=== PATIENT | male | born 1940 | race Caucasian/White ===

== ENCOUNTER 2022-07-11 10:00 | Outpatient (REF) | payer MEDICARE, OTHER, SELFPAY ==
[2022-07-11 14:59] LABS: Influenza A PCR NEGATIVE (Negative); Influenza B PCR NEGATIVE (Negative); Resp Syncy Virus RNA Qual PCR NEGATIVE (Negative); SARS COV2 PCR INHOUSE NEGATIVE (Negative)
== END 2022-07-11 10:01 | disposition home or self-care (01) ==
LOC: HO.LAB 10:00
PROVIDERS: Visit Provider Family Medicine
DX: Z20.822 Contact with and (suspected) exposure to COVID-19 (principal); B34.9 Viral infection, unspecified
CPT/HCPCS: 0241U

== ENCOUNTER 2024-01-01 14:21 | Outpatient (AMB) | payer MEDICARE, OTHER, SELFPAY ==
--- NOTE | 2024-01-01 14:23 | MHC.PC.OV ---
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: No Allergies simvastatin [Zocor] Allergy (Unknown, Verified 07/11/22 09:47) Hives Medication List - Last Reconciled 01/01/24 by Gisella Alexis PA-C citalopram 20 mg PO DAILY losartan 50 mg PO DAILY meclizine 25 mg PO TID rosuvastatin 10 mg PO DAILY trazodone 50 mg PO BEDTIME zolpidem 10 mg PO BEDTIME Tobacco use date assessed: 01/01/24 Fall risk assessment: 2 + Falls in past year Last assessed Fall Risk: 01/01/24 Dental Screening Dental Screen Date: 01/01/24 Did you have a dental visit in the last 12 months?: No Did you have a dental problem in the last 6 months where you did not have access to dental care?: No Was dental information given to patient?: Patient has dentist 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 He is transferring from [facility]. He was previously Dr. Diggs's patient. He has a significant past medical history of anxiety, depression, insomnia, hypertension, hyperlipidemia, CAD, CVA, prediabetes, MARNIE on CPAP. -He tells me today he did not take his meds today. Derm: Left lower leg rash that started about a year. It is intermittently itchy. Endo: has a hx of prediabetes. No polyuria or polydipsia. CV: Blood pressure today in the office is 148/72. He is currently on losartan 50 mg. Cholesterol controlled with Crestor 10 mg. Overdue for labs. Has a history of an [place] s/p PCI. Follows with cardiology. Psych: On citalopram 20 mg and zolpidem 10 mg[address] He [address] that Dr[address] Urieb switched him to trazodone and he states it was horrible. Ambien is the most effective and he wants to stay on this. He was on this for 15 years. PSA: overdue Colonoscopy: scheduled in February [facility] Medical History (Updated 01/01/24 @ 15:35 by Gisella Alexis PA-C) Neck injury Vertigo Reactive airway disease Prediabetes Polyneuropathy Periodic limb movement disorder Osteoarthritis of left knee Osteoarthritis of hip MARNIE on CPAP Myocardial infarction Major depressive disorder in partial remission Insomnia Hypoxia Hyperlipidemia Hearing aid worn Dyspnea and respiratory abnormalities Diverticulitis of sigmoid colon Coronary atherosclerosis Coronary arteriosclerosis Chronic rhinitis Chronic low back pain Benign essential HTN Arthritis Adjustment disorder with mixed anxiety and depressed mood Surgical History (Updated 01/01/24 @ 14:54 by Candy Marie CMA) H/O heart artery stent H/O colonoscopy H/O hernia repair Hx laparoscopic cholecystectomy Family History (Updated 01/01/24 @ 14:57 by Candy Marie CMA) Mother Alzheimer dementia Social History Housing: House Patient Tobacco Use Status: Never used Tobacco e-Cigarette/Vaping Use: Never Used Second Hand Smoke Exposure: No service: No Current occupational status: retired Cognitive needs: No Hearing needs: No Vision needs: No Questionnaire PHQ-9 Over the last 2 weeks, how often have you been bothered by any of the following problems? 1. Little interest or pleasure in doing things: not at all 2. Feeling down, depressed, or hopeless: not at all 3. Trouble falling or staying asleep, or sleeping too much: not at all 4. Feeling tired or having little energy: not at all 5. Poor appetite or overeating: not at all 6. Feeling bad about yourself - or that you are a failure or have let yourself or your family down: not at all 7. Trouble concentrating on things, such as reading the newspaper or watching television: not at all 8. Moving or speaking so slowly that other people could have noticed. Or the opposite - being so fidgety or restless that you have been moving around a lot more than usual: not at all 9. Thoughts that you would be better off or of hurting yourself in some way: not at all Total score: 0 Depression Screening Interpretation: Negative Depression Screening Done: Yes 04273 - PHQ-9 Billing: Yes Source: Developed by Drs. Deni Jones, Marcela Syed, Stanley Stock and colleagues, with an educational ca from [employer]. Thrive Questionnaire Date Thrive assessed: 01/01/24 I am a: Patient What is your living situation today?: I have a steady place to live Within the past 12 months, did the food you bought not last and you didn't have the money to get more?: Never true Within the past 12 months, did you worry whether your food would run out before you got money to buy more?: Never true Do you have trouble paying for medicines?: No Do you have trouble getting transportation to medical appointments?: No Do you have trouble paying your heating and electricity bill?: No Do you have trouble taking care of your child, family member or friend?: No Do you have trouble with day-to-day activities such as bathing, preparing meals, shopping, managing finances, etc.?: No Are you currently unemployed and looking for a job?: No Are you interested in more education?: No Please select the resources that you would like help with: None Currently or been in a relationship where the following occur: No concerns reported THRIVE Score: 0 AUDIT C Alcohol Use Questionnaire (AUDIT-C) 1. How often do you have a drink containing alcohol?: Never 3. How often do you have six or more drinks on one occasion?: Never Total Score: 0 KJ-7 AMB Questionnaire KJ-7 Date KJ - 7 assessed: 01/01/24 Feeling nervous, anxious, or on edge: 0 = Not at all Not being able to stop or control worryin = Not at all Worrying too much about different things: 0 = Not at all Trouble relaxin = Not at all Being so restless that it is hard to sit still: 0 = Not at all Becoming easily annoyed or irritable: 0 = Not at all Feeling afraid as if something awful might happen: 0 = Not at all Total KJ-7 score (0-4 normal; 5-9 mild; 10-14 moderate; 15-21 severe): 0 Source: Developed by Drs. Deni Jones, Marcela Syed, Stanley Stock and colleagues, with an educational ca from [employer]. KJ-7 Assessment Billing KJ-7 Assessment Tool: KJ-7 Assessment 38328 Physical exam (Primary Care) Vital Signs: Last Vital Signs Temp 98.4 F 01/01/24 14:36 Pulse 64 01/01/24 14:36 Resp 18 01/01/24 14:36 BP 150/76 H 01/01/24 14:36 Pulse Ox 94 01/01/24 14:36 Oxygen Delivery Method Room Air 01/01/24 14:36 BMI result Body Mass Index 35.3 Depression Screening Interpretation: Negative Currently or been in a relationship where the following occur: No concerns reported Const Orientation/consciousness: patient oriented x3 HENMT Ears: hearing grossly normal bilaterally Neck Thyroid: Thyroid normal Lymphatic: no lymphadenopathy noted Resp Auscultation: clear to auscultation bilaterally Cardio Rate: regular rate Rhythm: regular rhythm Heart sounds: S1 normal heart sound present and S2 normal heart sound present GI Inspection: Yes normal to inspection Palpation (GI): Soft to palpation and Other GI palpation findings present (nontender, no cva tenderness) Auscultation: normoactive bowel sounds Rectal Exam - Male: Yes deferred Skin Other: There is a slightly erythematous, blanching, papular and dry rash noted on the posterior left leg. Neuro General: patient oriented x3, gait normal and no focal motor deficits Assessment and Plan Assessment & Plan (1) Hyperlipidemia: Code(s): E78.5 - Hyperlipidemia, unspecified Plan: Refilled medication today. Continue Crestor. We will check lipids and LFTs (2) Insomnia: Code(s): G47.00 - Insomnia, unspecified Plan: We will sign CSC with PCP at next appointment. I did review her last note from July 2023. (3) Major depressive disorder in partial remission: Code(s): F32.4 - Major depressive disorder, single episode, in partial remission Plan: Continue Celexa (4) Prediabetes: Code(s): R73.03 - Prediabetes Plan: A1c ordered (5) Acute dermatitis: Code(s): L30.9 - Dermatitis, unspecified Plan: We will treat with clobetasol cream. Discussed risks and benefits and adverse effects. (6) Benign essential HTN: Code(s): I10 - Essential (primary) hypertension Plan: Advised to take his medication as directed and to follow up in 1 month to be rechecked. Orders: Orders Lipid Panel Today E78.5 - Hyperlipidemia, unspecified, F32.4 - Major depressive disorder, single episode, in partial remission, G47.00 - Insomnia, unspecified, R73.03 - Prediabetes TSH reflex Free T4 Today E78.5 - Hyperlipidemia, unspecified, F32.4 - Major depressive disorder, single episode, in partial remission, G47.00 - Insomnia, unspecified, R73.03 - Prediabetes UA CC w/rflx Micro + Cult Today E78.5 - Hyperlipidemia, unspecified, F32.4 - Major depressive disorder, single episode, in partial remission, G47.00 - Insomnia, unspecified, R73.03 - Prediabetes Comprehensive [place]. Panel Fast Today E78.5 - Hyperlipidemia, unspecified, F32.4 - Major depressive disorder, single episode, in partial remission, G47.00 - Insomnia, unspecified, R73.03 - Prediabetes Complete Blood Count Auto Diff Today E78.5 - Hyperlipidemia, unspecified, F32.4 - Major depressive disorder, single episode, in partial remission, G47.00 - Insomnia, unspecified, R73.03 - Prediabetes Prostate Specific Antigen Scr Today E78.5 - Hyperlipidemia, unspecified, F32.4 - Major depressive disorder, single episode, in partial remission, G47.00 - Insomnia, unspecified, R73.03 - Prediabetes Hemoglobin A1c Today E78.5 - Hyperlipidemia, unspecified, F32.4 - Major depressive disorder, single episode, in partial remission, G47.00 - Insomnia, unspecified, R73.03 - Prediabetes Medications: New rosuvastatin 10 mg PO DAILY 90 tabs 3RF clobetasol 0.05% 1 appl topical BID 2 weeks 60 grams 1RF Coding Level of Care Code New Pt Level 4 (78410) Complex EM visit Add On G2211 Diagnoses Hyperlipidemia E78.5 Insomnia G47.00 Major depressive disorder in partial remission F32.4 Prediabetes R73.03 Acute dermatitis L30.9 Benign essential HTN I10 Additional Codes KJ-7 Assessment Billing - KJ-7 Assessment Tool: KJ-7 Assessment [id number] ([id number])
[2024-01-01 14:36] VITALS: BP 150/76; PULSE 64; RESP 18; TEMP 36.9; O2SAT 94; BMI 35.3
[2024-01-01 14:48] VITALS: BP 148/72
== END 2024-01-01 15:25 | disposition home or self-care (01) ==
PROVIDERS: PCP Internal Medicine; Visit Provider Physician Assistant
DX: E78.5 Hyperlipidemia, unspecified (principal); G47.00 Insomnia, unspecified; F32.4 Major depressive disorder, single episode, in partial remission; R73.03 Prediabetes; L30.9 Dermatitis, unspecified; I10 Essential (primary) hypertension
CPT/HCPCS: 99214; G2211

== ENCOUNTER 2024-01-21 08:31 | Outpatient (REF) | payer MEDICARE, OTHER, SELFPAY ==
[2024-01-21 11:22] LABS: Appearance Urine Clear; Color Urine Yellow; Glucose Urine UA Negative (Negative); Leukocyte Esterase Urine Negative (Negative); Nitrite Urine Negative (Negative); PH 5.5 (5.0-9.0); UMIC TRIGGER UACC YES; Urine Blood Trace (Negative); Urine Ketones Negative (Negative); Urine Protein Negative (Neg-Trace)
[2024-01-21 11:25] LABS: Bacteria Urine None Seen (None Seen); Hyaline Casts Urine 0-2 /LPF (0-2); Squamous Epithelial Cell Urine 0-2 /HPF (0-2); WBC Urine 0-5 /HPF (0-5)
[2024-01-21 11:27] LABS: MANUAL DIFF FLAG NO
[2024-01-21 11:30] LABS: Basophils Percent Auto 0.6 % (0-2); Eosinophils Absolute Auto 0.3 X10*3/uL (0.0-0.4); Eosinophils Percent Auto 7.2 % (0-4); Hematocrit 43.8 % (42.0-52.0); Hemoglobin 15.2 g/dl (14.0-18.0); Imm Gran Abs Auto 0.02 X10*3/uL (0.00-0.03); Imm Gran Pct Auto 0.4 % (0.0-0.4); Lymphocytes Absolute Auto 1.1 X10*3/uL (1.2-4.9); Lymphocytes Percent Auto 24.3 % (20-40); Mean Corpuscular HGB Conc 34.7 g/dl (31.0-36.0); Mean Corpuscular Hemoglobin 31.4 pg (27.0-33.0); Mean Corpuscular Volume 90.5 fL (80.0-98.0); Mean Platelet Volume 10.9 fL (9.4-12.4); Monocytes Absolute Auto 0.4 X10*3/uL (0.1-1.2); Monocytes Percent Auto 9.4 % (2-11); Neutrophils Absolute Auto 2.7 x10*3/uL (2.0-8.3); Neutrophils Percent Auto 58.1 % (45-73); Platelet Count 166 X10*3/uL (160-400); Red Blood Count 4.84 X10*6/uL (4.60-5.80); Red Cell Distribution Width 12.9 % (11.0-16.0); White Blood Count 4.7 X10*3/uL (4.8-10.8)
[2024-01-21 11:41] LABS: Estimated Average Glucose 120 mg/dL; Hemoglobin A1c % 5.8 % (<6.0)
[2024-01-21 11:57] LABS: Alanine Aminotransferase 26 U/L (0-40); Alkaline Phosphatase 78 U/L (39-117); Anion Gap 9 (12-20); Aspartate Amino Transferase 32 U/L (5-37); Bilirubin Total 1.2 mg/dL (0.0-1.0); Blood Urea Nitrogen 16 mg/dL (9-16); Carbon Dioxide 26 mmol/L (22-29); Chloride 109 mmol/L (96-108); Cholesterol 131 mg/dL (<200); Estimated Glomerular Filt Rate > 60; Glucose Fasting 102 mg/dL (60-99); HDL Cholesterol 33 mg/dL (>40); LDL Cholesterol Calculated 78 mg/dL (<100); Potassium 4.1 mmol/L (3.3-5.1); Sodium 140 mmol/L (135-145); Total Protein 7.2 g/dL (6.5-8.0); Triglycerides 104 mg/dL (<150)
[2024-01-21 12:22] LABS: TSH reflex Free T4 1.54 uIU/mL (0.32-4.0)
[2024-01-21 12:27] LABS: Prostate Specific Antigen Scr 1.59 ng/mL (<0.05-4.0)
== END 2024-01-21 08:32 | disposition home or self-care (01) ==
LOC: HO.WFDLDS 08:31
PROVIDERS: Visit Provider Physician Assistant
DX: R73.03 Prediabetes (principal); F32.4 Major depressive disorder, single episode, in partial remission; E78.5 Hyperlipidemia, unspecified; G47.00 Insomnia, unspecified; Z12.5 Encounter for screening for malignant neoplasm of prostate
CPT/HCPCS: 36415; 80053; 80061; 81001; 83036; 84153; 84443; 85025

== ENCOUNTER 2024-01-27 07:44 | Outpatient (REF) | payer MEDICARE, OTHER, SELFPAY ==
[2024-01-27 11:30] LABS: Appearance Urine Clear; Color Urine Yellow; Glucose Urine UA Negative (Negative); Leukocyte Esterase Urine Negative (Negative); Nitrite Urine Negative (Negative); PH 5.5 (5.0-9.0); Specific Gravity - Urine 1.025 (1.005-1.025); UMIC TRIGGER UACC YES; Urine Blood Trace (Negative); Urine Ketones Negative (Negative); Urine Protein Negative (Neg-Trace)
[2024-01-27 11:37] LABS: Bacteria Urine None Seen (None Seen); Hyaline Casts Urine 0-2 /LPF (0-2); RBC Urine 0-2 /HPF (0-2); Squamous Epithelial Cell Urine 0-2 /HPF (0-2); WBC Urine 0-5 /HPF (0-5)
== END 2024-01-27 07:45 | disposition home or self-care (01) ==
LOC: HO.LNP 07:44
PROVIDERS: Visit Provider Physician Assistant
DX: R31.9 Hematuria, unspecified (principal)
CPT/HCPCS: 81001

== ENCOUNTER 2024-02-03 13:43 | Outpatient (AMB) | payer MEDICARE, OTHER, SELFPAY ==
--- NOTE | 2024-02-03 13:50 | A.OFFPC_ITS ---
Vital Signs 02/03/24 13:55 Height 5 ft 5.75 in Weight 213 lb 4 oz BMI 34.7 BP 130/62 Blood Pressure Location Lt brachial Position Sitting Respiration 14 Pulse 70 Pulse Source Pulse Oximeter Pulse Oximetry (%) 93 Oxygen Delivery Method Room Air Intake Visit Reasons: bp check, csc, follow up with PCP - Dr Terrell Intake Note: Follow up blood pressure. Allergies simvastatin [Zocor] Allergy (Unknown, Verified 07/11/22 09:47) Hives Tobacco use date assessed: 01/01/24 Dental Screening Dental Screen Date: 01/01/24 HPI HPI Comments History of Present Illness Details The patient is an 84-year-old male who presents today for a new patient visit. He is transferring from [facility]. He was previously Dr. Diggs's patient. He has a significant past medical history of anxiety, depression, insomnia, hypertension, hyperlipidemia, CAD, CVA, prediabetes, MARNIE on CPAP presenting for follow up Endo: has a hx of prediabetes. No polyuria or polydipsia. CV: On losartan 50g daily. Cholesterol controlled with Crestor 10 mg. Overdue for labs. Has a history of an [place] s/p PCI. Follows with cardiology. Psych: On citalopram 20 mg and zolpidem 10 mg. Trazodone ineffective PSA:normal. Is having excessive daytime urination. A1C is 5.8%. Two recent urines with microscopic blood. Upcoming urology evaluation Colonoscopy: scheduled in February CONSTITUTIONAL: Denies weight loss, fever and chills. HEENT: Denies changes in vision and hearing. RESPIRATORY: Denies SOB and cough. CV: Denies palpitations and CP GI: Denies abdominal pain, nausea, vomiting and diarrhea. : Denies dysuria and urinary frequency. MSK: Denies new myalgia and joint pain. SKIN: Denies rash and pruritus. NEUROLOGICAL: Denies headache PSYCHIATRIC: Denies recent changes in mood. PHYSICAL EXAM: GENERAL: Alert and oriented x 3. NAD EYES: EOMI. Anicteric. HENT: Moist mucous membranes. No scleral icterus. No cervical lymphadenopathy. LUNGS: Clear to auscultation bilaterally. CARDIOVASCULAR: Regular rate and rhythm. No murmur. No JVD. ABDOMEN: Soft, non-tender +bs EXTREMITIES: No edema. Non-tender. SKIN: No rashes or lesions. Warm. NEUROLOGIC: No focal neurological deficits. CN II-XII grossly intact PSYCHIATRIC: Cooperative. Appropriate mood and affect COUNTS INCLUDE 234 BEDS AT THE [facility] Medical History Neck injury Vertigo Reactive airway disease Prediabetes Polyneuropathy Periodic limb movement disorder Osteoarthritis of left knee Osteoarthritis of hip MARNIE on CPAP Myocardial infarction Major depressive disorder in partial remission Insomnia Hypoxia Hyperlipidemia Hearing aid worn Dyspnea and respiratory abnormalities Diverticulitis of sigmoid colon Coronary atherosclerosis Coronary arteriosclerosis Chronic rhinitis Chronic low back pain Benign essential HTN Arthritis Adjustment disorder with mixed anxiety and depressed mood Surgical History H/O heart artery stent H/O colonoscopy H/O hernia repair Hx laparoscopic cholecystectomy Family History Mother Alzheimer dementia Social History Housing: House Patient Tobacco Use Status: Never used Tobacco e-Cigarette/Vaping Use: Never Used Second Hand Smoke Exposure: No service: No Current occupational status: retired Cognitive needs: No Hearing needs: No Vision needs: No Questionnaire Thrive Questionnaire Date Thrive assessed: 01/01/24 KJ-7 AMB Questionnaire KJ-7 Date KJ - 7 assessed: 01/01/24 Source: Developed by Drs. Deni Jones, Marcela Syed, Stanley Stock and colleagues, with an educational ca from [employer]. Physical exam (Primary Care) Vital Signs: Last Vital Signs Pulse 70 02/03/24 13:55 Resp 14 02/03/24 13:55 BP 130/62 02/03/24 13:55 Pulse Ox 93 02/03/24 13:55 Oxygen Delivery Method Room Air 02/03/24 13:55 BMI result Body Mass Index 34.7 Tobacco/Smoking Status: Tobacco use Status Tobacco use date assessed 01/01/24 02/03/24 13:50 Patient Tobacco Use Status Never used Tobacco 02/03/24 13:50 e-Cigarette/Vaping Use Never Used 02/03/24 13:50 Thrive Assessment: Date of Thrive Assessment Date Thrive assessed 09/04/24 10/07/24 13:50 Coding Level of Care Code Est Pt Level 4 (88109) Diagnoses Recurrent major depressive disorder, in partial remission F33.41 Major depression recurrence: recurrent Prediabetes R73.03 Benign essential HTN I10 Other microscopic hematuria R31.29 Hematuria type: other microscopic Assessment & Plan Assessment & Plan (1) Major depressive disorder in partial remission: Code(s): F32.4 - Major depressive disorder, single episode, in partial remission Category: Medical Qualifiers: Major depression recurrence: recurrent Qualified Code(s): F33.41 - Major depressive disorder, recurrent, in partial remission Plan: Stable on celexa 20mg daily (2) Prediabetes: Code(s): R73.03 - Prediabetes Category: Medical Plan: A1C stable at 5.8%-this is recent. Do not think contributing here to excessive urination. watch sugar/carb intake. Goals toward weight loss (3) Benign essential HTN: Code(s): I10 - Essential (primary) hypertension Category: Medical Plan: Controlled on current medication (4) Hematuria: Code(s): R31.9 - Hematuria, unspecified Category: Medical Qualifiers: Hematuria type: other microscopic Qualified Code(s): R31.29 - Other microscopic hematuria Plan: upcoming urology evaluation Medications: New losartan 50 mg PO DAILY 90 tabs 3RF tamsulosin 0.4 mg PO DAILY 90 caps 3RF meclizine 25 mg PO TID 90 tabs 3RF Changed From citalopram 20 mg PO DAILY To citalopram 20 mg PO DAILY 90 tabs 3RF 90 days Refilled rosuvastatin 10 mg PO DAILY 90 tabs 3RF zolpidem 10 mg PO BEDTIME 90 tabs 3RF G47.00 - Insomnia, unspecified
[2024-02-03 13:55] VITALS: BP 130/62; PULSE 70; RESP 14; O2SAT 93; BMI 34.7
== END 2024-02-03 14:33 | disposition home or self-care (01) ==
PROVIDERS: PCP Internal Medicine; Visit Provider Internal Medicine
DX: F33.41 Major depressive disorder, recurrent, in partial remission (principal); R73.03 Prediabetes; I10 Essential (primary) hypertension; R31.29 Other microscopic hematuria

== ENCOUNTER → 2024-02-03 13:43 | Outpatient (BNVA) | payer MEDICARE, OTHER, SELFPAY | PROVIDERS: PCP Internal Medicine; Visit Provider Internal Medicine | DX: I10 Essential (primary) hypertension (principal); F33.41 Major depressive disorder, recurrent, in partial remission; R73.03 Prediabetes; R31.29 Other microscopic hematuria | CPT/HCPCS: 99212 ==

== ENCOUNTER 2024-03-23 13:50 | Outpatient (AMB) | payer MEDICARE, OTHER, SELFPAY ==
--- NOTE | 2024-03-23 13:52 | A.OFFVIS_ITS ---
Intake Visit Reasons: microscopic hematuria Intake Note: New Patient presents for initial visit for microscopic hematuria Urology Medications: none Blood Thinner: none Subcontracts Manager Required: No Accompanied by: Self / Same As Patient Allergies simvastatin [Zocor] Allergy (Unknown, Verified 03/23/24 14:38) Hives Medication List - Last Reconciled 03/23/24 by EDGAR Rivera- citalopram 20 mg PO DAILY 90 days clobetasol 0.05% 1 appl topical BID 2 weeks losartan 50 mg PO DAILY meclizine 25 mg PO TID rosuvastatin 10 mg PO DAILY zolpidem 10 mg PO BEDTIME HPI Comments Details: Benny is a very pleasant 84-year-old male patient of . He has a past medical history of vertigo, prediabetes, polyneuropathy, osteoarthritis, MARNIE on CPAP, myocardial infarction, depression, insomnia, hyperlipidemia, coronary atherosclerosis, chronic rhinitis, chronic low-back pain, hypertension, arthritis, and adjustment disorder with mixed anxiety and depression mood. He presents to the office today as a new patient for a history of nephrolithiasis as well as microscopic hematuria. He reports having followed up with his PCP at which time recommendations were made for urology referral for further assessment evaluation. In office urinalysis results reviewed with the patient today 1+ microscopic hematuria noted. When asked he denies any previous history of any workplace chemical exposure and or nicotine dependence. We discussed at length potential causes of microscopic hematuria as well as further workup to include imaging and in office cystoscopy. Risks and benefits of these interventions were discussed. He does note intermittent episodes of urinary frequency as well as nocturia however these symptoms very. He otherwise denies hematuria, dysuria, foul smelling urine, changes to urinary stream, flank pain, fever, and or chills. He does report a previous history of nephrolithiasis however never requiring surgical intervention. He otherwise denies any other issues or concerns at this time. [facility] Medical History Neck injury Vertigo Reactive airway disease Prediabetes Polyneuropathy Periodic limb movement disorder Osteoarthritis of left knee Osteoarthritis of hip MARNIE on CPAP Myocardial infarction Major depressive disorder in partial remission Insomnia Hypoxia Hyperlipidemia Hearing aid worn Dyspnea and respiratory abnormalities Diverticulitis of sigmoid colon Coronary atherosclerosis Coronary arteriosclerosis Chronic rhinitis Chronic low back pain Benign essential HTN Arthritis Adjustment disorder with mixed anxiety and depressed mood Surgical History H/O heart artery stent H/O colonoscopy H/O hernia repair Hx laparoscopic cholecystectomy Family History Mother Alzheimer dementia Social History Housing: House Patient Tobacco Use Status: Never used Tobacco e-Cigarette/Vaping Use: Never Used Second Hand Smoke Exposure: No service: No Current occupational status: retired Cognitive needs: No Hearing needs: No Vision needs: No Review of Systems Eyes Reports no additional complaints ENT Reports no additional complaints Card Reports as per HPI Resp Reports as per HPI GI Reports as per HPI Reports as per HPI Musc Reports as per HPI Neuro Reports as per HPI Endo Reports as per HPI Mihai/Lymph Reports no additional complaints Aller/Immun Reports as per HPI Physical Exam Const General: cooperative, healthy appearing, comfortable, no acute distress, well developed, alert and awake Orientation/consciousness: patient oriented x3 Limitations: no limitations HEENT Head: Yes normal to inspection, Yes normocephalic and Yes atraumatic Ears: hearing grossly normal bilaterally Eyes General: appearance normal, both eyes and all related structures Neck Neck: Yes normal visual inspection and Yes trachea midline Chest Chest palpation & inspection: normal inspection of the chest Resp Effort & Inspection: normal respiratory effort and able to speak in complete sentences Cardio Rate: regular rate GI Inspection: Yes normal to inspection General: Yes no CVA tenderness Back/Spine/Pelvis Back: no CVA tenderness Skin General skin exam: no rashes or lesions noted Neuro General: patient oriented x3 Extrem General: Yes normal to inspection Psych Appearance: grossly normal and well kempt Mental Status: mental status grossly normal Speech and movement: Normal speech and movement present and Clear speech present Affect: normal affect Attitude: cooperative Thought process: Normal thought process present Thought content: Normal thought content present Insight: Fair insight present (Psych) Judgement: Fair judgement present (Psych) Results AMB Urinalysis, Automated UA Leukoctes 0 Taina/uL Last Edit by Charlie Fox on 03/23/24 14:55 UA Nitrite Last Edit by Charlie Fox on 03/23/24 14:55 UA Urobilinogen 0.2 mg/dL Last Edit by Charlie Fox on 03/23/24 14:55 UA Protein 0 mg/dL Last Edit by Charlie Fox on 03/23/24 14:55 UA pH 6.0 Last Edit by Charlie Fox on 03/23/24 14:55 UA Blood 25 Amador/uL Last Edit by Charlie Fox on 03/23/24 14:55 UA Specific [place] 1.030 Last Edit by Charlie Fox on 03/23/24 14:55 UA Ketone Last Edit by Charlie Fox on 03/23/24 14:55 UA Bilirubin 0 mg/dL Last Edit by Charlie Fox on 03/23/24 14:55 UA Glucose 0 mg/dL Last Edit by Charlie Fox on 03/23/24 14:55 Assessment & Plan Assessment & Plan (1) Microscopic hematuria: Code(s): R31.29 - Other microscopic hematuria Category: Medical (2) Nephrolithiasis: Code(s): N20.0 - Calculus of kidney Category: Medical Plan In office urinalysis results reviewed with the patient today; as noted above; will send for urine cytology. We discussed at length potential causes of microscopic hematuria as well as further workup and risks and benefits of these interventions. Will obtain retroperitoneal ultrasound for further assessment evaluation. Will obtain PSA for further assessment evaluation. Discussed in office cystoscopy versus surveillance monitoring; risks and benefits of these interventions were discussed. Will continue with surveillance monitoring at this time per patient request. Follow-up in 1-3 months with imaging and PSA to be completed prior; or sooner with any issues, concerns, and or questions. Orders: Orders Prostate Specific Antigen Today N40.0 - Benign prostatic hyperplasia without lower urinary tract symptoms US retroperitoneal comp Today N20.0 - Calculus of kidney, R31.29 - Other microscopic hematuria AMB Urinalysis Automated Today Z13.9 - Encounter for screening, unspecified Patient Instructions: The patient had an opportunity to ask questions regarding the treatment plan. All questions were answered. Physical exam, labs, and imaging were discussed and reviewed in detail. As well as risks, benefits, and discussion of treatment choices. No major barriers to understanding were identified. The patient expressed understanding and agreement with the above treatment plan. The patient was made aware they should contact our office by phone for worsening of their current condition, the appearance of new symptoms, or with any questions or concerns. Compliance is encouraged with any medications and follow up testing that is ordered. It is a privilege to be allowed the opportunity to participate in? your urological care.? Again, if you have any questions or concerns If you have any questions or concerns please do not hesitate to contact me. The office is [phone]. This note is constructed using voice recognition software. While every effort has been made to ensure accuracy asp web developer errors may have been included. Yours sincerely, ALEC Rivera Coding Level of Care Code New Pt Level 3 (00008) Diagnoses Microscopic hematuria R31.29 Nephrolithiasis N20.0
== END 2024-03-23 14:38 | disposition home or self-care (01) ==
PROVIDERS: PCP Internal Medicine; Visit Provider Nurse Practitioner Family
DX: R31.29 Other microscopic hematuria (principal); N20.0 Calculus of kidney; Z13.9 Encounter for screening, unspecified
CPT/HCPCS: 99203

== ENCOUNTER 2024-03-23 13:50 | Outpatient (REF) | payer MEDICARE, OTHER, SELFPAY ==
[2024-03-23 16:42] LABS: Urine Cytology See Pathology rpt
== END 2024-03-23 13:51 | disposition home or self-care (01) ==
LOC: HO.LNP 13:50
PROVIDERS: PCP Internal Medicine; Visit Provider Nurse Practitioner Family
DX: N20.0 Calculus of kidney (principal); R31.29 Other microscopic hematuria
CPT/HCPCS: 81003; 88112; 99202

== ENCOUNTER 2024-04-30 08:12 | Outpatient (AMB) | payer MEDICARE, OTHER, SELFPAY ==
--- NOTE | 2024-04-30 08:14 | MHC.OFFWIV ---
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 He notes associated intermittent nonproductive cough at night. The nasal congestion makes makes it difficulty to breath. His symptoms have been ongoing for the past 3 weeks, improves in the morning and worsens as the day progresses. No fever, chills, body aches, sore throat, fatigue, or weakness. Denies sick contact. He is not taking any medication for his symptoms. [facility] Medical History Neck injury Vertigo Reactive airway disease Prediabetes Polyneuropathy Periodic limb movement disorder Osteoarthritis of left knee Osteoarthritis of hip MARNIE on CPAP Myocardial infarction Major depressive disorder in partial remission Insomnia Hypoxia Hyperlipidemia Hearing aid worn Dyspnea and respiratory abnormalities Diverticulitis of sigmoid colon Coronary atherosclerosis Coronary arteriosclerosis Chronic rhinitis Chronic low back pain Benign essential HTN Arthritis Adjustment disorder with mixed anxiety and depressed mood Surgical History H/O heart artery stent H/O colonoscopy H/O hernia repair Hx laparoscopic cholecystectomy Family History Mother Alzheimer dementia Social History Housing: House Patient Tobacco Use Status: Never used Tobacco e-Cigarette/Vaping Use: Never Used Second Hand Smoke Exposure: No service: No Current occupational status: retired Cognitive needs: No Hearing needs: No Vision needs: No Review of Systems Const Details: Denies chills, Denies fatigue, Denies fever(s), Denies headache(s) and Denies weakness Cardiac Denies chest pain, Denies claudication, Denies leg edema, Denies lightheadedness, Denies palpitations, Denies dyspnea, Denies dyspnea on exertion, Denies orthopnea and Denies other (Loss of consciousness) Resp Reports cough, Denies excessive phlegm production, Denies dyspnea, Denies dyspnea on exertion, Denies snoring and Denies wheezing ENT Reports as per HPI Physical Exam Vital Signs: Last Vital Signs Temp 97.7 F 04/30/24 08:21 Pulse 86 04/30/24 08:21 Resp 16 04/30/24 08:21 BP 130/72 04/30/24 08:21 Pulse Ox 96 04/30/24 08:21 Oxygen Delivery Method Simple Mask 04/30/24 08:21 BMI result Body Mass Index 35.5 Const Other: General: comfortable and no acute distress Orientation/consciousness: patient oriented x3 Chest Chest palpation & inspection: normal inspection of the chest Resp Auscultation: clear to auscultation bilaterally Cardiac Palpation: normal PMI Heart sounds: S1 normal heart sound present, S2 normal heart sound present, no gallops, no murmur, no rubs ENT Head is normocephalic Bilateral ear canal and TM are normal Nasal turbinates and oropharynx are pink and moist Sinuses are nontender with palpation No auricular or cervical lymphadenopathy Assessment & Plan Assessment & Plan (1) Seasonal allergies: Code(s): J30.2 - Other seasonal allergic rhinitis Plan: Likely allergies. No exam evidence of bacterial infection Rest Hydrate well -? Drink plenty of fluids.? Especially water. Tylenol or ibuprofen for muscle aches, headache, fever/discomfort Zyrtec as prescribed Return for new or worsening symptoms Verbalized understanding and agreed with treatment plan. Medications: New cetirizine 10 mg PO DAILY 30 days 30 tabs 1RF Coding Level of Care Code Est Pt Level 3 (09241) Diagnoses Seasonal allergies J30.2
[2024-04-30 08:21] VITALS: BP 130/72; PULSE 86; RESP 16; TEMP 36.5; O2SAT 96; BMI 35.5
== END 2024-04-30 08:44 | disposition home or self-care (01) ==
PROVIDERS: PCP Internal Medicine; Visit Provider Nurse Practitioner Family
DX: J30.2 Other seasonal allergic rhinitis (principal)

== ENCOUNTER → 2024-04-30 08:12 | Outpatient (BNVA) | payer MEDICARE, SELFPAY | PROVIDERS: PCP Internal Medicine | DX: J30.2 Other seasonal allergic rhinitis (principal) | CPT/HCPCS: 99212 ==

== ENCOUNTER 2024-05-04 09:39 | Outpatient (REF) | payer MEDICARE, SELFPAY ==
--- NOTE | ~2024-05-04 | US_ITS ---
EXAMINATION: US RETROPERITONEUM HISTORY: N20.0 - Calculus of kidney TECHNIQUE: Real-time grayscale ultrasound imaging of the kidneys was performed and images were reviewed. COMPARISON: There are no prior studies for comparison. FINDINGS: Right kidney: The right kidney measures 10.7 x 6.7 x 6.4 cm. Renal parenchymal echotexture and thickness are normal. There are 3 cysts in the midportion of the kidney measuring 6 x 6 x 5 mm, 7 x 6 x 6 mm, and 3 x 5 x 3 mm. An additional lower pole cyst measures 4 x 4 by 3 mm. No solid masses are identified. There is no hydronephrosis or renal calculi. Left Kidney: The left kidney measures 10.9 x 6.0 x 4.8 cm. Renal parenchymal echotexture and thickness are normal. There are no masses. There is a nonobstructing calculus at the upper pole measuring 1.3 cm in size. There is no hydronephrosis. The urinary bladder is partially collapsed. Bilateral ureteral jets are identified. There is an estimated postvoid residual volume of 10 mL. US/US retroperitoneal comp IMPRESSION: Multiple subcentimeter right renal cysts as described. 1.3 cm nonobstructing left renal calculus. Electronically signed by: Deni Cobos MD 05/04/2024 12:25 PM [facility]
== END 2024-05-04 09:40 | disposition home or self-care (01) ==
LOC: HO.US 09:39
PROVIDERS: PCP Internal Medicine; Visit Provider Nurse Practitioner Family
DX: N20.0 Calculus of kidney (principal); R31.29 Other microscopic hematuria
CPT/HCPCS: 76770

== ENCOUNTER → 2024-05-04 09:50 | Outpatient (BNV) | payer MEDICARE, SELFPAY | PROVIDERS: PCP Internal Medicine; Visit Provider Radiology Diagnostic Radiology | DX: N20.0 Calculus of kidney (principal) | CPT/HCPCS: 76770 ==

== ENCOUNTER 2024-05-06 14:05 | Outpatient (AMB) | payer MEDICARE, SELFPAY ==
--- NOTE | 2024-05-06 14:10 | MHC.PC.OV ---
Vital Signs 05/06/24 14:31 Height 5 ft 5.75 in Weight 215 lb 2 oz BMI 35.0 BP 148/76 H Blood Pressure Location Lt brachial Position Sitting Respiration 14 Pulse 66 Pulse Source Pulse Oximeter Pulse Oximetry (%) 97 Oxygen Delivery Method Room Air Intake Visit Reasons: cold like symptoms/possible allergy? pain in ear Intake Note: Patient complaining of sore throat, head congested, hard to breath x 1 month and patient was also seen here like a week ago for the same thing. 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 pain in ear HPI Details Pt is an 84 y/o male with a significant past medical history of hypertension, hyperlipidemia, depression and anxiety presenting today with complaints of 3 weeks of sinus pain or pressure, right ear pain, sore throat, and nasal congestion. He states for the last couple days he has felt feverish on and off for the last few days and some intermittent chills. No documented fever. He was seen last week when his symptoms seem to exacerbate it he states that he was put on antihistamines. He does not find the sertraline helpful. He has been using Afrin for the last 3 days with some temporary improvement but he states he knows he can not take it longer than this. CV: Blood pressure today in the office is 148/76. He is compliant with the losartan but states that he thinks it could be elevated because of the cold medicines that he is taking. He is managing his cholesterol with the Crestor 10 mg. [facility] Medical History Neck injury Vertigo Reactive airway disease Prediabetes Polyneuropathy Periodic limb movement disorder Osteoarthritis of left knee Osteoarthritis of hip MARNIE on CPAP Myocardial infarction Major depressive disorder in partial remission Insomnia Hypoxia Hyperlipidemia Hearing aid worn Dyspnea and respiratory abnormalities Diverticulitis of sigmoid colon Coronary atherosclerosis Coronary arteriosclerosis Chronic rhinitis Chronic low back pain Benign essential HTN Arthritis Adjustment disorder with mixed anxiety and depressed mood Surgical History H/O heart artery stent H/O colonoscopy H/O hernia repair Hx laparoscopic cholecystectomy Family History Mother Alzheimer dementia Social History Housing: House Patient Tobacco Use Status: Never used Tobacco e-Cigarette/Vaping Use: Never Used Second Hand Smoke Exposure: No service: No Current occupational status: retired Cognitive needs: No Hearing needs: No Vision needs: No Questionnaire PHQ-9 Over the last 2 weeks, how often have you been bothered by any of the following problems? 26581 - PHQ-9 Billing: Patient declined-do not bill Source: Developed by Drs. Deni Jones, Marcela Syed, Stanley Stock and colleagues, with an educational ca from [employer]. Thrive Questionnaire Date Thrive assessed: 05/06/24 I am a: Patient What is your living situation today?: I have a steady place to live Within the past 12 months, did the food you bought not last and you didn't have the money to get more?: Never true Within the past 12 months, did you worry whether your food would run out before you got money to buy more?: Never true Do you have trouble paying for medicines?: No Do you have trouble getting transportation to medical appointments?: No Do you have trouble paying your heating and electricity bill?: No Do you have trouble taking care of your child, family member or friend?: No Do you have trouble with day-to-day activities such as bathing, preparing meals, shopping, managing finances, etc.?: No Are you currently unemployed and looking for a job?: No Are you interested in more education?: No THRIVE Score: 0 KJ-7 AMB Questionnaire KJ-7 Date KJ - 7 assessed: 01/01/24 Source: Developed by Drs. Deni Jones, Marcela Syed, Stanley Stock and colleagues, with an educational ca from [employer]. Physical exam (Primary Care) Vital Signs: Last Vital Signs Pulse 66 05/06/24 14:31 Resp 14 05/06/24 14:31 BP 148/76 H 05/06/24 14:31 Pulse Ox 97 05/06/24 14:31 Oxygen Delivery Method Room Air 05/06/24 14:31 BMI result Body Mass Index 35.0 Tobacco/Smoking Status: Tobacco use Status Tobacco use date assessed 01/01/24 05/06/24 14:10 Patient Tobacco Use Status Never used Tobacco 05/06/24 14:10 e-Cigarette/Vaping Use Never Used 05/06/24 14:10 Thrive Assessment: Date of Thrive Assessment Date Thrive assessed 05/06/24 05/06/24 14:11 Const Orientation/consciousness: patient oriented x3 HENMT Other: TM on right is erythematous, bulging with a small fluid level noted. TM on left is dome-shaped with a small air-fluid level. Nasal mucosa erythematous and edematous. No drainage noted. Patient did just use Afrin prior to arrival. No sinus pain noted. Ears: hearing grossly normal bilaterally Neck Thyroid: Thyroid normal Lymphatic: no lymphadenopathy noted Resp Auscultation: clear to auscultation bilaterally Cardio Rate: regular rate Rhythm: regular rhythm Heart sounds: S1 normal heart sound present and S2 normal heart sound present GI Inspection: Yes normal to inspection Palpation (GI): Soft to palpation and Other GI palpation findings present (nontender, no cva tenderness) Auscultation: normoactive bowel sounds Rectal Exam - Male: Yes deferred Skin General skin exam: no rashes or lesions noted Neuro General: patient oriented x3, gait normal and no focal motor deficits Coding Level of Care Code Est Pt Level 4 (27323) Diagnoses Right otitis media, unspecified otitis media type H66.91 Otitis media type: unspecified Benign essential HTN I10 Assessment & Plan Assessment & Plan (1) Otitis media, right: Code(s): H66.91 - Otitis media, unspecified, right ear Category: Medical Qualifiers: Otitis media type: unspecified Qualified Code(s): H66.91 - Otitis media, unspecified, right ear Plan: We will start Augmentin. Advised patient to use this, the Zyrtec as prescribed and Flonase. We discussed risks and benefits and adverse effects of this medication including GI upset. Contact me if anything worsens or changes or fails to improve. (2) Benign essential HTN: Code(s): I10 - Essential (primary) hypertension Category: Medical Plan: A bit elevated above goal today. Advised to monitor at home and to avoid certain decongestants as they can elevate his blood pressure. We did discuss that he could try Coricidin. Medications: New amoxicillin-pot clavulanate 875-125 mg 1 tab PO Q12H 20 tabs 0RF
[2024-05-06 14:31] VITALS: BP 148/76; PULSE 66; RESP 14; O2SAT 97; BMI 35.0
== END 2024-05-06 14:45 | disposition home or self-care (01) ==
PROVIDERS: PCP Internal Medicine; Visit Provider Physician Assistant
DX: H66.91 Otitis media, unspecified, right ear (principal); I10 Essential (primary) hypertension

== ENCOUNTER → 2024-05-06 14:05 | Outpatient (BNVA) | payer MEDICARE, SELFPAY | PROVIDERS: PCP Internal Medicine; Visit Provider Physician Assistant | DX: I10 Essential (primary) hypertension (principal); E78.5 Hyperlipidemia, unspecified; F32.A Depression, unspecified; H66.91 Otitis media, unspecified, right ear | CPT/HCPCS: 99212 ==

== ENCOUNTER 2024-05-13 08:01 | Outpatient (AMB) | payer OTHER, SELFPAY ==
--- NOTE | 2024-05-13 08:05 | MHC.OFFVIS ---
Intake Visit Reasons: 2m/US/PSA Intake Note: Patient is Present for Follow Up Ultrasound/PSA Urology Medication: None Antibiotic Allergies: None Blood Thinners: None Director Hospice Operations Required: No Accompanied by: Self / Same As Patient Allergies simvastatin [Zocor] Allergy (Unknown, Verified 05/13/24 08:42) Hives Medication List - Last Reconciled 05/13/24 by JORGE RiveraP- amoxicillin-pot clavulanate 875-125 mg 1 tab PO Q12H cetirizine 10 mg PO DAILY 30 days citalopram 20 mg PO DAILY 90 days clobetasol 0.05% 1 appl topical BID 2 weeks losartan 50 mg PO DAILY rosuvastatin 10 mg PO DAILY zolpidem 10 mg PO BEDTIME HPI Comments Details: Benny is a very pleasant 84-year-old male patient of . He has a past medical history of vertigo, prediabetes, polyneuropathy, osteoarthritis, MARNIE on CPAP, myocardial infarction, depression, insomnia, hyperlipidemia, coronary atherosclerosis, chronic rhinitis, chronic low-back pain, hypertension, arthritis, and adjustment disorder with mixed anxiety and depression mood. He presents to the office today for follow-up. Of note, patient was seen a proximally 2 months ago as a new patient for nephrolithiasis as well as microscopic hematuria at which time a retroperitoneal ultrasound was ordered for further assessment evaluation. These results reviewed with the patient today. Bilateral kidneys with no hydronephrosis. Right kidney with subcentimeter renal cyst largest measuring a proximally 7 mm. Left kidney with 1.3 cm nonobstructing calculus in the upper pole. The urinary bladder is partially collapsed. Bladder jets are demonstrated. Postvoid bladder volume is approximately 10 mL. In office urinalysis results reviewed with the patient today 1+ microscopic hematuria. He denies any known workplace chemical exposure and or history of nicotine dependence. PSA 01/20 1.6. We discussed at length further intervention for nephrolithiasis to include surveillance monitoring verses surgical intervention. Patient discusses having a history of nephrolithiasis in the past however never requiring surgical intervention. He otherwise denies any bothersome urinary issues or concerns. He does report episodes of nocturia however this is infrequent. He denies gross/visible hematuria, dysuria, foul smelling urine, changes to urinary stream, flank pain, fever, and or chills. He otherwise denies any other issues or concerns at this time. [facility] Medical History Neck injury Vertigo Reactive airway disease Prediabetes Polyneuropathy Periodic limb movement disorder Osteoarthritis of left knee Osteoarthritis of hip MARNIE on CPAP Myocardial infarction Major depressive disorder in partial remission Insomnia Hypoxia Hyperlipidemia Hearing aid worn Dyspnea and respiratory abnormalities Diverticulitis of sigmoid colon Coronary atherosclerosis Coronary arteriosclerosis Chronic rhinitis Chronic low back pain Benign essential HTN Arthritis Adjustment disorder with mixed anxiety and depressed mood Surgical History H/O heart artery stent H/O colonoscopy H/O hernia repair Hx laparoscopic cholecystectomy Family History Mother Alzheimer dementia Social History Housing: House Patient Tobacco Use Status: Never used Tobacco e-Cigarette/Vaping Use: Never Used Second Hand Smoke Exposure: No service: No Current occupational status: retired Cognitive needs: No Hearing needs: No Vision needs: No Review of Systems Eyes Reports no additional complaints ENT Reports no additional complaints Card Reports as per HPI Resp Reports as per HPI GI Reports as per HPI Reports as per HPI Musc Reports as per [facility] Neuro Reports as per HPI Endo Reports as per HPI Mihai/Lymph Reports no additional complaints Aller/Immun Reports as per HPI Physical Exam Const General: cooperative, healthy appearing, comfortable, no acute distress, well developed, alert and awake Nutritional Appearance: overweight Orientation/consciousness: patient oriented x3 Limitations: no limitations HEENT Head: Yes normal to inspection, Yes normocephalic and Yes atraumatic Ears: hearing grossly normal bilaterally Eyes General: appearance normal, both eyes and all related structures Neck Neck: Yes normal visual inspection and Yes trachea midline Chest Chest palpation & inspection: normal inspection of the chest Resp Effort & Inspection: normal respiratory effort and able to speak in complete sentences Cardio Rate: regular rate GI Inspection: Yes normal to inspection General: Yes no CVA tenderness Back/Spine/Pelvis Back: no CVA tenderness Skin General skin exam: no rashes or lesions noted Neuro General: patient oriented x3 Extrem General: Yes normal to inspection Psych Appearance: grossly normal and well kempt Mental Status: mental status grossly normal Speech and movement: Normal speech and movement present and Clear speech present Affect: normal affect Attitude: cooperative Thought process: Normal thought process present Thought content: Normal thought content present Insight: Fair insight present (Psych) Judgement: Fair judgement present (Psych) Results AMB Urinalysis, Automated UA Leukoctes 0 Taina/uL Last Edit by Fernanda Hudson [facility] on 05/13/24 08:15 UA Nitrite Negative Last Edit by Fernanda Hudson [facility] on 05/13/24 08:15 UA Urobilinogen 0.2 mg/dL Last Edit by Fernanda Hudson A on 05/13/24 08:15 UA Protein 15 mg/dL Last Edit by Fernanda Hudson [facility] on 05/13/24 08:15 UA pH 6.0 Last Edit by Fernanda Hudson [facility] on 05/13/24 08:15 UA Blood 25 Amador/uL Last Edit by Fernanda Hudson [facility] on 05/13/24 08:15 UA Specific [place] 1.020 Last Edit by Fernanda Hudson [facility] on 05/13/24 08:15 UA Ketone Negative Last Edit by Fernanda Hudson [facility] on 05/13/24 08:15 UA Bilirubin 0 mg/dL Last Edit by Fernanda Hudson [facility] on 05/13/24 08:15 UA Glucose 0 mg/dL Last Edit by Fernanda Hudson [facility] on 05/13/24 08:15 Results Reviewed Results Reviewed: Laboratory Last Values Urine pH (Auto) 6.0 05/13/24 08:09 Specific [place] (Auto) 1.020 05/13/24 08:09 Urine Protein (Auto) 15 mg/dL 05/13/24 08:09 Glucose (UA)(Auto) 0 mg/dL 05/13/24 08:09 Urine Ketones (Auto) Negative 05/13/24 08:09 Urine Blood (Auto) 25 Amador/uL 05/13/24 08:09 Urine Nitrite (Auto) Negative 05/13/24 08:09 Urine Bilirubin (Auto) 0 mg/dL 05/13/24 08:09 Urine Urobilinogen (Auto) 0.2 mg/dL 05/13/24 08:09 Leukocyte Esterase (Auto) 0 Taina/uL 05/13/24 08:09 Date of Service: 05/04/24 EXAMINATION: US RETROPERITONEUM FINDINGS: Right kidney: The right kidney measures 10.7 x 6.7 x 6.4 cm. Renal parenchymal echotexture and thickness are normal. There are 3 cysts in the midportion of the kidney measuring 6 x 6 x 5 mm, 7 x 6 x 6 mm, and 3 x 5 x 3 mm. An additional lower pole cyst measures 4 x 4 by 3 mm. No solid masses are identified. There is no hydronephrosis or renal calculi. Left Kidney: The left kidney measures 10.9 x 6.0 x 4.8 cm. Renal parenchymal echotexture and thickness are normal. There are no masses. There is a nonobstructing calculus at the upper pole measuring 1.3 cm in size. There is no hydronephrosis. The urinary bladder is partially collapsed. Bilateral ureteral jets are identified. There is an estimated postvoid residual volume of 10 mL. IMPRESSION: Multiple subcentimeter right renal cysts as described. 1.3 cm nonobstructing left renal calculus. Assessment & Plan Assessment & Plan (1) Nephrolithiasis: Code(s): N20.0 - Calculus of kidney Category: Medical (2) Microscopic hematuria: Code(s): R31.29 - Other microscopic hematuria Category: Medical (3) Renal cyst: Code(s): N28.1 - Cyst of kidney, acquired Category: Medical Plan In office urinalysis results reviewed the patient today; as noted above. Recent retroperitoneal ultrasound results reviewed with the patient today; as noted above. We discussed at length potential causes of microscopic hematuria. We discussed potential causes of nephrolithiasis as well as further workup and interventions for nephrolithiasis; risks and benefits of these interventions were discussed. Patient currently denies any bothersome urinary issues or concerns. He reports be happy with current voiding parameters. Will obtain CT KUB for further assessment evaluation. Follow-up in 3 months with imaging to be completed prior; or sooner with any issues, concerns, and or questions. Orders: Orders AMB Urinalysis Automated Today Z13.9 - Encounter for screening, unspecified CT kidney stone Today N20.0 - Calculus of kidney Patient Instructions: The patient had an opportunity to ask questions regarding the treatment plan. All questions were answered. Physical exam, labs, and imaging were discussed and reviewed in detail. As well as risks, benefits, and discussion of treatment choices. No major barriers to understanding were identified. The patient expressed understanding and agreement with the above treatment plan. The patient was made aware they should contact our office by phone for worsening of their current condition, the appearance of new symptoms, or with any questions or concerns. Compliance is encouraged with any medications and follow up testing that is ordered. It is a privilege to be allowed the opportunity to participate in? your urological care.? Again, if you have any questions or concerns If you have any questions or concerns please do not hesitate to contact me. The office is [phone]. This note is constructed using voice recognition software. While every effort has been made to ensure accuracy microsoft exchange administrator errors may have been included. Yours sincerely, ALEC Rivera Coding Level of Care Code Est Pt Level 3 (19161) Diagnoses Nephrolithiasis N20.0 Microscopic hematuria R31.29 Renal cyst N28.1
== END 2024-05-13 08:30 | disposition home or self-care (01) ==
PROVIDERS: PCP Internal Medicine; Visit Provider Nurse Practitioner Family
DX: N20.0 Calculus of kidney (principal); R31.29 Other microscopic hematuria; N28.1 Cyst of kidney, acquired; Z13.9 Encounter for screening, unspecified
CPT/HCPCS: 99213

== ENCOUNTER → 2024-05-13 08:01 | Outpatient (BNVA) | payer MEDICARE, SELFPAY | PROVIDERS: PCP Internal Medicine; Visit Provider Nurse Practitioner Family | DX: N20.0 Calculus of kidney (principal); R31.29 Other microscopic hematuria; N28.1 Cyst of kidney, acquired | CPT/HCPCS: 81003 ==

== ENCOUNTER 2024-06-11 12:46 | Outpatient (AMB) | payer MEDICARE, SELFPAY ==
--- NOTE | 2024-06-11 12:50 | MHC.PC.OV ---
Vital Signs 06/11/24 12:52 Height 5 ft 5.75 in Weight 215 lb 4 oz BMI 35.0 BP 96/56 L Blood Pressure Location Lt brachial Position Sitting Respiration 22 H Pulse 84 Pulse Source Pulse Oximeter Temp 98 F Temp Source Oral Pulse Oximetry (%) 94 Oxygen Delivery Method Room Air Intake Visit Reasons: Hard to breath, cough Intake Note: Trouble breathing, cough, sneezing for a month. No covid or flu tests. Activity Coordinator Required: No Allergies simvastatin [Zocor] Allergy (Unknown, Verified 06/11/24 12:51) Hives Medication List - Last Reconciled 06/11/24 by Gisella Alexis PA-C citalopram 20 mg PO DAILY 90 days clobetasol 0.05% 1 appl topical BID 2 weeks losartan 50 mg PO DAILY rosuvastatin 10 mg PO DAILY zolpidem 10 mg PO BEDTIME Tobacco use date assessed: 01/01/24 Dental Screening Dental Screen Date: 01/01/24 HPI Hard to breath, cough HPI Details History of Present Illness The patient is an 84-year-old male presenting with nasal congestion and dry cough. The symptoms began approximately one month ago and have persisted despite interventions. Initially, the patient experienced symptoms resembling sinus issues and received antibiotic treatment six weeks ago, which seemed to help temporarily. The primary complaint remains severe nasal congestion, especially at night, causing difficulty in breathing through the nose, though not impacting oral breathing significantly. The dry cough occurs sporadically, primarily when the patient is seated. The patient denies associated symptoms such as shortness of breath, fever, or significant sinus pain. No fevers or chills. No nausea, vomiting or diarrhea. States that he does not feel sick but just feels like his nose is very congested. No sore throat or ear pain. He does have sleep apnea and states that he needs a new CPAP device. He does not like his mask. He has previously followed with [facility] and would like to go back to them. The blood pressure is noted to be lower than usual, with the patient currently on Losartan. He is not well hydrated today. He is a prediabetic and denies any polyuria or polydipsia. He has not really been watching his diet. Health Maintenance - Discussed and initiated plan for chest x-ray to evaluate persistent dry cough. - Blood work including complete blood count, liver function, kidney function and Hemoglobin A1c to monitor prediabetes. - Advised transition from Zyrtec and Flonase to Xyzal and a prescription nasal spray. Social History - Patient consumes approximately two bottles of water per day, more during summertime. - The patient's monitors his hydration; she drinks less water comparatively. Review of Systems - Eyes: Reports eye watering. - Ears, Nose, Throat: Reports severe nasal congestion; Denies sore throat, nasal pain, ear pain. - Respiratory: Denies shortness of breath; Reports dry cough. - Cardiovascular: Denies chest pain. - Constitutional: Denies fever and chills. Physical Exam General: Well developed, well nourished, in no acute distress. Appears stated age. HEENT: TMs are dome-shaped a small air-fluid levels bilaterally. No erythema. Canals are clear. Nasal mucosa is pale, boggy and edematous. Nasal septum is deviated Clear drainage noted. No sinus tenderness present. Cardiac: RRR, no murmurs Lungs: clear, equal breath sounds Abdomen: soft, nontender, no CVA tenderness Extremities: no edema Neuro: alert, oriented x3, mood appropriate Plan - I will discontinue current use of Zyrtec and Flonase and prescribe Xyzal, an alternative antihistamine, and a new prescription nasal spray to manage chronic rhinosinusitis symptoms. Patient to use the nasal spray twice daily. - I will refer the patient to an ENT specialist for further evaluation of nasal congestion and potential deviated septum complications if symptoms persist. - A chest x-ray has been ordered to rule out any underlying pulmonary pathology contributing to the persistent cough. - Blood panels will be conducted today to evaluate the patient?s overall health status, with a particular focus on prediabetes monitoring due to a history of elevated A1c levels. - Lower blood pressure measurements will be re-evaluated upon follow-up. - I will facilitate a referral to pulmonology and potential review for access to CPAP therapy due to longstanding obstructive sleep apnea concerns. [facility] Medical History Neck injury Vertigo Reactive airway disease Prediabetes Polyneuropathy Periodic limb movement disorder Osteoarthritis of left knee Osteoarthritis of hip MARNIE on CPAP Myocardial infarction Major depressive disorder in partial remission Insomnia Hypoxia Hyperlipidemia Hearing aid worn Dyspnea and respiratory abnormalities Diverticulitis of sigmoid colon Coronary atherosclerosis Coronary arteriosclerosis Chronic rhinitis Chronic low back pain Benign essential HTN Arthritis Adjustment disorder with mixed anxiety and depressed mood Surgical History H/O heart artery stent H/O colonoscopy H/O hernia repair Hx laparoscopic cholecystectomy Family History Mother Alzheimer dementia Social History (Updated 06/11/24 @ 12:56 by Candy Marie CMA) Housing: House Alcohol intake: current Patient Tobacco Use Status: Never used Tobacco e-Cigarette/Vaping Use: Never Used Second Hand Smoke Exposure: No service: No Current occupational status: retired Cognitive needs: No Hearing needs: No Vision needs: No Questionnaire Thrive Questionnaire Date Thrive assessed: 05/06/24 KJ-7 AMB Questionnaire KJ-7 Date KJ - 7 assessed: 01/01/24 Source: Developed by Drs. Deni Jones, Marcela Syed, Stanley Stock and colleagues, with an educational ca from [employer]. Physical exam (Primary Care) Vital Signs: Last Vital Signs Temp 98 F 06/11/24 12:52 Pulse 84 06/11/24 12:52 Resp 22 H 06/11/24 12:52 BP 96/56 L 06/11/24 12:52 Pulse Ox 94 06/11/24 12:52 Oxygen Delivery Method Room Air 06/11/24 12:52 BMI result Body Mass Index 35.0 Tobacco/Smoking Status: Tobacco use Status Tobacco use date assessed 01/01/24 06/11/24 12:56 Patient Tobacco Use Status Never used Tobacco 06/11/24 12:56 e-Cigarette/Vaping Use Never Used 06/11/24 12:56 Thrive Assessment: Date of Thrive Assessment Date Thrive assessed 05/06/24 06/11/24 12:56 Coding Level of Care Code Est Pt Level 4 (46353) Complex EM visit Add On G2211 Diagnoses Benign essential HTN I10 Prediabetes R73.03 Cough R05.9 Allergic rhinitis J30.9 MARNIE (obstructive sleep apnea) G47.33 Assessment & Plan Assessment & Plan (1) Benign essential HTN: Code(s): I10 - Essential (primary) hypertension Category: Medical Plan: Asymptomatic but low today. Advised to hydrate. We will recheck in 2 weeks (2) Prediabetes: Code(s): R73.03 - Prediabetes Category: Medical Plan: A1c ordered (3) Cough: Code(s): R05.9 - Cough, unspecified Category: Medical Plan: Chest x-ray ordered. He will call me when he completes this over at [facility] (4) Allergic rhinitis: Code(s): J30.9 - Allergic rhinitis, unspecified Category: Medical Plan: As above. Trial different antihistamines. (5) MARNIE (obstructive sleep apnea): Code(s): G47.33 - Obstructive sleep apnea (adult) (pediatric) Category: Medical Plan: Referral to pulmonology Orders: Orders Comprehensive Met. Panel Today I10 - Essential (primary) hypertension, R73.03 - Prediabetes XR chest 2V Today I10 - Essential (primary) hypertension, J30.9 - Allergic rhinitis, unspecified, R05.9 - Cough, unspecified, R73.03 - Prediabetes Complete Blood Count Auto Diff Today I10 - Essential (primary) hypertension, R73.03 - Prediabetes Hemoglobin A1c Today I10 - Essential (primary) hypertension, R73.01 - Impaired fasting glucose, R73.03 - Prediabetes Referrals Pulmonology Referral G47.33 - Obstructive sleep apnea (adult) (pediatric) Ear/Nose/Throat Referral G47.33 - Obstructive sleep apnea (adult) (pediatric), J34.89 - Other specified disorders of nose and nasal sinuses, R09.81 - Nasal congestion Medications: New levocetirizine (Xyzal) 5 mg PO QPM 90 tabs 0RF azelastine administer into each nostril 1 spray intranasal BID 30 mL 2RF
[2024-06-11 12:52] VITALS: BP 96/56; PULSE 84; RESP 22; TEMP 36.6; O2SAT 94; BMI 35.0
--- OUTSIDE RECORDS SUMMARY | 2024-06-11 12:54 | XMS_ITS | Clinical Summary ---
Author Organization [facility] Address [id number] [place] [id number] Care Team Providers Care Fishing Rod Marker Name Role Phone Grace Diggs MD Primary Care Provider [phone] Encounters Date Type Department Care Team Description 04/02/[address] [place] [address] Shasta Garcia NP DME _VENDOR from Last 3 Months Surgical History Surgery Date Site/Laterality Comments BACK SURGERY as teen PROCEDURE: HISTORICAL BACK SURGERY; COMMENT: c spine bone implant ANGIOPLASTY 2006 PROCEDURE: HISTORICAL ANGIOPLASTY; COMMENT: lad,obtuse marginal HERNIA REPAIR 03/28/12 PROCEDURE: REPAIR UMBILICAL HERNIA; COMMENT: incarcerated umb hernia CHOLECYSTECTOMY 03/28/12 PROCEDURE: LAPAROSCOPY, CHOLECYSTECTOMY COLONOSCOPY around 2004 [place] PROCEDURE: HISTORICAL COLONOSCOPY; COMMENT: no polyps COLONOSCOPY 06/28/14 PROCEDURE: MO COLONOSCOPY STOMA W/RMVL AINSLEY POLYP/OTH LES SNARE; COMMENT: small adenma and tics; would not repeat Medical History Medical History Date Comments Heart attack (CMS/HCC) 10/2004 DX:Heart attack (HCC); COMMENT: 3 stents Anxiety DX:Anxiety Hyperlipidemia DX:Hyperlipidemi a Chronic LBP DX:Chronic LBP Sigmoid diverticulitis DX:Sigmoi d diverticulitis CAD (coronary artery disease) DX :CAD (coronary artery disease); COMMENT: 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, meat cutter apprentice Inguinal hernia, right DX:Inguin al hernia, right Basal cell carcinoma DX:Basal ce ll carcinoma Depression DX:Depression Rhinitis, chronic DX:Rhinitis, c hronic Sleep apnea 01/13/2012 DX:Sleep apnea Insomnia 02/19/2012 DX:Insomnia Cholecystitis 02/19/2012 DX:Cholecystitis Periodic limb movement disorder 02/19/2012 DX:Periodic limb movement disorder MARNIE (obstructive sleep apnea) 02/19/2012 DX :MARNIE (obstructive sleep apnea) Degenerative joint disease ( DJD) of hip 10/19/2014 DX:Degenerative joint diseas e (DJD) of hip; COMMENT: bilaterally Osteoarthritis of left knee 04/18/2017 DX:O steoarthritis of left knee Family History Medical History Relation Name Comments Autoimmune disease Neg Hx Breast cancer Neg Hx Colon cancer Neg Hx Coronary artery disease Neg Hx Diabetes Neg Hx Heart attack Neg Hx Heart failure Neg Hx Hyperlipidemia Neg Hx Hypertension Neg Hx Mental illness Neg Hx Prostate cancer Neg Hx Sleep apnea Neg Hx Thyroid disease Neg Hx Social History Tobacco Use Types Packs/Day Years Used Date Smoking Tobacco: Never Smokeless Tobacco: Never Alcohol Use Standard Drinks/Week Comments No 0 (1 standard drink = 0.6 oz pur e alcohol) Sex and Gender Information Value Date Recorded Sex Assigned at Not on file Legal Sex Male 9:52 PM EST Gender Identity Not on file Sexual Orientation Not on file Obstetrics History Last Filed Vital Signs Vital Sign Reading Time Taken Comments Blood Pressure 130/80 07/24/2023 8:34 AM EDT Pulse 67 07/24/2023 8:34 AM EDT Temperature - - Respiratory Rate - - Oxygen Saturation - - Inhaled Oxygen Concentration - - Weight 96.2 kg (212 lb) 07/24/2023 8:34 AM EDT Height 167.6 cm (5' 6 ) 07/24/2023 8:34 AM EDT Body Mass Index 34.22 07/24/2023 8:34 AM EDT Plan of Treatment Health Maintenance Due Date Last Done Comments Zoster Vaccines (1 of 2) 03/18/2008 01/22/2008 RSV Immunization Patients 60+ Years Old (1 - 1-dose 75+ series) 02/03/2016 COVID-19 Vaccine (3 - Pfizer risk series) 07/29/2020 07/01/2020, 06/10/2020 Cholesterol Screening (Lipid Panel) 03/31/2022 Depression Screening 03/31/2022 Falls Risk Assessment 03/31/2022 Medicare Annual Wellness Visit 03/31/2022 Social Influencers of Health Screening 03/31/2022 Hypertension/CHF/CAD Annual BMP Blood Test 04/12/2022 Influenza Vaccine (#1) 2023 2, 01/06/2021, 01/13/2020, Additional history exists DTaP,Tdap,and Td Vaccines (4 - Td or Tdap) 07/02/2026 07/02/2016, 01/22/2008, 04/29/1999 Pneumococcal Vaccine: 50+ Years Completed 03/06/2016, 01/22/2008 HIB Vaccines Aged Out No longer eligi ble based on patient's age to complete this topic HPV Vaccines Aged Out No longer eligi ble based on patient's age to complete this topic Hepatitis A Vaccines Aged Out No long er eligible based on patient's age to complete this topic Hepatitis B Vaccines Aged Out No long er eligible based on patient's age to complete this topic IPV Vaccines Aged Out No longer eligi ble based on patient's age to complete this topic MMR Vaccines Aged Out No longer eligi ble based on patient's age to complete this topic Meningococcal ACWY Vaccine Aged Out N o longer eligible based on patient's age to complete this topic Meningococcal B Vacine Aged Out No lo nger eligible based on patient's age to complete this topic RSV Immunization Patients Under 20 months Aged Out No longer eligible based on patient's age to complete this topic Varicella Vaccines Aged Out No longer eligible based on patient's age to complete this topic Care Teams Fishing Rod Marker Relationship Specialty Start Date End Date Grace Diggs MD PCP - General 07/24/23
== END 2024-06-11 14:36 | disposition home or self-care (01) ==
PROVIDERS: PCP Internal Medicine; Visit Provider Physician Assistant
DX: I10 Essential (primary) hypertension (principal); R73.03 Prediabetes; R05.9 Cough, unspecified; J30.9 Allergic rhinitis, unspecified; G47.33 Obstructive sleep apnea (adult) (pediatric)

== ENCOUNTER → 2024-06-11 12:46 | Outpatient (BNVA) | payer MEDICARE, SELFPAY | PROVIDERS: PCP Internal Medicine; Visit Provider Physician Assistant ==

== ENCOUNTER 2024-06-11 13:15 | Outpatient (REF) | payer MEDICARE, SELFPAY ==
--- OUTSIDE RECORDS SUMMARY | 2024-06-11 13:23 | XMS_ITS | Encounter Summary ---
Author Organization [facility] Address [address] [place] [address] Care Team Providers Care Photograph Developer Name Role Phone Rizwana Parson MD Primary Care Provider Grace Hebert MD Primary Care Provider Unavaila ble Encounter Details Date Type Department Care Team Description 01/20/2018 Switch Cleaner Report Medical Records [address] [place] [address] Chucky Marvin MD Social History Tobacco Use Types Packs/Day Years Used Date Smoking Tobacco: Never Smokeless Tobacco: Never Alcohol Use Standard Drinks/Week Comments No 0 (1 standard drink = 0.6 oz pur e alcohol) Sex Assigned at Date Recorded Not on file Job Start Date Occupation Industry Not on file Not on file Not on file documented as of this encounter Plan of Treatment Not on file documented as of this encounter Visit Diagnoses Not on filedocumented in this encounter Care Teams Photograph Developer Relationship Specialty Start Date End Date Rizwana Parson MD PCP - General Internal Medicine 02/26/12 07/23/23 Grace Terrell MD PCP - General Internal Medicine 07/24/23 documented as of this encounter
--- OUTSIDE RECORDS SUMMARY | 2024-06-11 13:23 | XMS_ITS | Encounter Summary ---
Author Organization [facility] Address [address] [place] [address] Care Team Providers Care Career And Guidance Counselor Name Role Phone Rizwana Parson MD Primary Care Provider Grace Hebert MD Primary Care Provider Unavaila ble Encounter Details Date Type Department Care Team Description 05/06/2017 Field Operations Manager Report Medical Records [address] [place] [address] Social History Tobacco Use Types Packs/Day Years [...] on filedocumented in this encounter Care Teams Career And Guidance Counselor Relationship Specialty Start Date End Date Rizwana Parson MD PCP - General Internal Medicine 02/26/12 07/23/23 Grace Terrell MD PCP - General Internal Medicine 07/24/23 documented as of this encounter
--- OUTSIDE RECORDS SUMMARY | 2024-06-11 13:23 | XMS_ITS | Encounter Summary ---
Author Organization [facility] Address [address] [place] [address] Care Team Providers Care Corrugator Operator Name Role Phone Rizwana Parson MD Primary Care Provider Grace Hebert MD Primary Care Provider Unavaila ble Encounter Details Date Type Department Care Team Description 07/03/2014 [facility] Medical Records [address] [place] [address] Edmund Arrieta NP Social History Tobacco Use Types Packs/Day Years [...] on filedocumented in this encounter Care Teams Corrugator Operator Relationship Specialty Start Date End Date Rizwana Parson MD PCP - General Internal Medicine 02/26/12 07/23/23 Grace Terrell MD PCP - General Internal Medicine 07/24/23 documented as of this encounter
--- OUTSIDE RECORDS SUMMARY | 2024-06-11 13:23 | XMS_ITS | Encounter Summary ---
Author Organization [facility] Address [address] [place] [address] Care Team Providers Care Flight Instructor Name Role Phone Rizwana Parson MD Primary Care Provider Grace Hebert MD Primary Care Provider Unavaila ble Encounter Details Date Type Department Care Team Description 06/23/2015 [facility] Medical Records [address] [place] [address] Abstract, Provider Social History Tobacco Use Types Packs/Day Years [...] on filedocumented in this encounter Care Teams Flight Instructor Relationship Specialty Start Date End Date Rizwana Parson MD PCP - General Internal Medicine 02/26/12 07/23/23 Grace Terrell MD PCP - General Internal Medicine 07/24/23 documented as of this encounter
--- OUTSIDE RECORDS SUMMARY | 2024-06-11 13:23 | XMS_ITS | Encounter Summary ---
Author Organization [facility] Address [address] [place] [address] Care Team Providers Care Chief Internal Auditor Name Role Phone Rizwana Parson MD Primary Care Provider Grace Hebert MD Primary Care Provider Unavaila ble Encounter Details Date Type Department Care Team Description 06/30/2014 Business Doc Medical Records [address] [place] [address] Abstract, Provider Social History Tobacco Use Types [...] on filedocumented in this encounter Care Teams Chief Internal Auditor Relationship Specialty Start Date End Date Rizwana Parson MD PCP - General Internal Medicine 02/26/12 07/23/23 Grace Terrell MD PCP - General Internal Medicine 07/24/23 documented as of this encounter
--- OUTSIDE RECORDS SUMMARY | 2024-06-11 13:23 | XMS_ITS | Encounter Summary ---
Author Organization [facility] Address [address] [place] [address] Care Team Providers Care Technical Planner Name Role Phone Rizwana Parson MD Primary Care Provider Grace Hebert MD Primary Care Provider Unavaila ble Encounter Details Date Type Department Care Team Description 11/25/2017 Relationship Associate Report Medical Records [address] [place] [address] Rodolfo Juarez MD Social History Tobacco Use Types Packs/Day [...] on filedocumented in this encounter Care Teams Technical Planner Relationship Specialty Start Date End Date Rizwana Parson MD PCP - General Internal Medicine 02/26/12 07/23/23 Grace Terrell MD PCP - General Internal Medicine 07/24/23 documented as of this encounter
--- OUTSIDE RECORDS SUMMARY | 2024-06-11 13:23 | XMS_ITS | Encounter Summary ---
Author Organization [facility] Address [address] [place] [address] Care Team Providers Care Salt Lifter Name Role Phone Rizwana Parson MD Primary Care Provider Grace Hebert MD Primary Care Provider Unavaila ble Encounter Details Date Type Department Care Team Description 12/01/2014 Hydrogeology Professor Report Medical Records [address] [place] [address] Social History Tobacco Use Types Packs/Day Years [...] on filedocumented in this encounter Care Teams Salt Lifter Relationship Specialty Start Date End Date Rizwana Parson MD PCP - General Internal Medicine 02/26/12 07/23/23 Grace Terrell MD PCP - General Internal Medicine 07/24/23 documented as of this encounter
--- OUTSIDE RECORDS SUMMARY | 2024-06-11 13:23 | XMS_ITS | Encounter Summary ---
Author Organization [facility] Address [address] [place] [address] Care Team Providers Care Certified Ski Patroller Name Role Phone Rizwana Parson MD Primary Care Provider Grace Hebert MD Primary Care Provider Unavaila ble Encounter Details Date Type Department Care Team Description 08/16/2015 Controlled Substance Plan Medical Records [address] [place] [address] Abstract, Provider Social History Tobacco Use Types [...] on filedocumented in this encounter Care Teams Certified Ski Patroller Relationship Specialty Start Date End Date Rizwana Parson MD PCP - General Internal Medicine 02/26/12 07/23/23 Grace Terrell MD PCP - General Internal Medicine 07/24/23 documented as of this encounter
--- OUTSIDE RECORDS SUMMARY | 2024-06-11 13:23 | XMS_ITS | Encounter Summary ---
Author Organization [facility] Address [address] [place] [address] Care Team Providers Care Legal Entity Controller Name Role Phone Rizwana Parson MD Primary Care Provider Grace Hebert MD Primary Care Provider Unavaila ble Encounter Details Date Type Department Care Team Description 07/04/2014 [facility] Medical Records [address] [place] [address] Edmund Arrieta NP Social History Tobacco Use [...] on filedocumented in this encounter Care Teams Legal Entity Controller Relationship Specialty Start Date End Date Rizwana Parson MD PCP - General Internal Medicine 02/26/12 07/23/23 Grace Terrell MD PCP - General Internal Medicine 07/24/23 documented as of this encounter
--- OUTSIDE RECORDS SUMMARY | 2024-06-11 13:23 | XMS_ITS | Encounter Summary ---
Author Organization [facility] Address [address] [place] [address] Care Team Providers Care Computer Programmer Name Role Phone Ngozi Rodrigues MD Primary Care Provider Augie Evans MD Primary Care Provider Jacobab Rizwana Ahn MD Primary Care Provider Grace Hebert MD Primary Care Provider Maria Teresa wood Encounter Details Date Type Department Care Team Description 11/16/2011 Business Doc Medical Records [address] [place] [id number] Abstract, Provider Social History Tobacco Use Types Packs/Day Years Used Date Smoking Tobacco: Never Smokeless Tobacco: Never Alcohol Use Standard Drinks/Week Comments Not Asked 0 (1 standard drink = 0.6 oz pur e alcohol) Sex Assigned at Date Recorded Not on file Job Start Date Occupation Industry Not on file Not on file Not on file documented as of this encounter Plan of Treatment Not on file documented as of this encounter Visit Diagnoses Not on filedocumented in this encounter Care Teams Computer Programmer Relationship Specialty Start Date End Date Ngozi Rodrigues MD PCP - General Internal Medicine 10/22/11 01/14/12 Augie Stephens MD PCP - General Internal Medicine 01/15/12 02/25/12 Rizwana Parson MD PCP - General Internal Medicine 02/26/12 07/23/23 Grace Terrell MD PCP - General Internal Medicine 07/24/23 documented as of this encounter
--- OUTSIDE RECORDS SUMMARY | 2024-06-11 13:23 | XMS_ITS | Encounter Summary ---
Author Organization [facility] Address [address] [place] [address] Care Team Providers Care Care Partner Name Role Phone Rizwana Parson MD Primary Care Provider Grace Hebert MD Primary Care Provider Unavaila ble Encounter Details Date Type Department Care Team Description 06/10/2018 [facility] Medical Records [address] [place] [id number] Abstract, Provider Social History Tobacco Use Types [...] on filedocumented in this encounter Care Teams Care Partner Relationship Specialty Start Date End Date Rizwana Parson MD PCP - General Internal Medicine 02/26/12 07/23/23 Grace Terrell MD PCP - General Internal Medicine 07/24/23 documented as of this encounter
--- OUTSIDE RECORDS SUMMARY | 2024-06-11 13:23 | XMS_ITS | Encounter Summary ---
Author Organization [facility] Address [address] [place] [address] Care Team Providers Care Water Main Inspector Name Role Phone Rizwana Parson MD Primary Care Provider UnaGrace Moyer MD Primary Care Provider Unavaila ble Encounter Details Date Type Department Care Team Description 10/02/2017 Infrastructure Technician Report Medical Records [address] [place] [address] Rodolfo Juarez MD Social History Tobacco Use [...] on filedocumented in this encounter Care Teams Water Main Inspector Relationship Specialty Start Date End Date Rizwana Parson MD PCP - General Internal Medicine 02/26/12 07/23/23 Grace Terrell MD PCP - General Internal Medicine 07/24/23 documented as of this encounter
--- OUTSIDE RECORDS SUMMARY | 2024-06-11 13:23 | XMS_ITS | Encounter Summary ---
Author Organization [facility] Address [address] [place] [address] Care Team Providers Care Network Liaison Name Role Phone Rizwana Parson MD Primary Care Provider Grace Hebert MD Primary Care Provider Unavaila ble Reason for Visit * Reason Onset Date Comments DME Request 05/08/2023 [facility] Encounter Details Date Type Department Care Team Description 05/08/2023 Telephone Pulmonology - [place] [address] [facility] [address] [place] [address] Shasta Garcia APRN [address] [facility] [address] [place] [phone] DME Request ([facility]) Social History Tobacco Use Types Packs/Day Years Used Date Smoking Tobacco: Never Smokeless Tobacco: Never Alcohol Use Standard Drinks/Week Comments No 0 (1 standard drink = 0.6 oz pur e alcohol) Sex Assigned at Date Recorded Not on file Job Start Date Occupation Industry Not on file Not on file Not on file documented as of this encounter Miscellaneous Notes * Telephone Encounter - May Naranjo - 05/08/2023 2:28 PM EST Request for Physician's Orders received from [facility]. [place] 10/19/2022 NOV 07/24/2023 documented in this encounter Plan of Treatment Not on file documented as of this encounter Visit Diagnoses Not on filedocumented in this encounter Care Teams Network Liaison Relationship Specialty Start Date End Date Rizwana Parson MD PCP - General Internal Medicine 02/26/12 07/23/23 Grace Terrell MD PCP - General Internal Medicine 07/24/23 documented as of this encounter
--- OUTSIDE RECORDS SUMMARY | 2024-06-11 13:23 | XMS_ITS | Encounter Summary ---
Author Organization [facility] Address [address] [place] [address] Care Team Providers Care Cellophane Press Operator Name Role Phone Rizwana Parson MD Primary Care Provider Grace Hebert MD Primary Care Provider Unavaila ble Reason for Visit * Reason Comments E-prescribe Rx Request Encounter Details Date Type Department Care Team Description 01/07/2015 Refill Medicine/Pediatrics - [address] [phone] Rizwana Parson MD E-prescribe Rx Request Social History Tobacco Use Types Packs/Day Years [...] encounter Miscellaneous Notes * Telephone Encounter - Alessia Mosher M.A. - 01/07/2015 4:04 PM EDT RX sent to pharmacy * Telephone Encounter - Shilpa Puente M.A. - 01/07/2015 2:01 PM EDT Source prescription for refill request was discontinued. Request today for mail order. Last RX to local pharmacy. Pt scheduled for ov 01/10/15 BP Readings from Last 5 Encounters: 12/13/14 142/82 11/25/14 110/70 11/09/14 124/76 10/19/14 136/82 08/31/14 140/72 * Telephone Encounter - Rosey Meza - 01/07/2015 1:42 PM EDT Patient would like script to be: E-PRESCRIBED/FAXED TO PHARMACY WHEN WAS THE PATIENT'S LAST APPOINTMENT IN ADULT MEDICINE? 12.13.14 WHEN WAS THE LAST TIME THE PATIENT SAW THEIR PCP? 08.20.14 Does patient have an upcoming appointment? Yes 01.10.15 (THE MEDICATION REQUESTED IS ON THE MED LIST ABOVE) All of the medications requested were on the CURRENT MEDS list Did you check the Pharmacy information above?: YES Patient wants: 90 -day supply Is this a mail order prescription request ? YES Patients current insurance carrier is: Payor: MEDICARE-SpaceClaim / Plan: MEDICARE ([employer]) BACKUS/ Product Type: MEDICARE [id number] documented in this encounter Plan of Treatment Not on file documented as of this encounter Visit Diagnoses Not on filedocumented in this encounter Care Teams Cellophane Press Operator Relationship Specialty Start Date End Date Rizwana Parson MD PCP - General Internal Medicine 02/26/12 07/23/23 Grace Terrell MD PCP - General Internal Medicine 07/24/23 documented as of this encounter
--- OUTSIDE RECORDS SUMMARY | 2024-06-11 13:23 | XMS_ITS | Clinical Summary ---
Author Organization [facility] Address [address] [place] [address] Care Team Providers Care Inspector Of Weights And Measures Name Role Phone Grace Terrell MD Primary Care Provider Unavaila ble Allergies Active Allergy Reactions Severity Noted Date Comments Ezetimibe 08/17/2020 Gemfibrozil 08/17/2020 Pravastatin Sodium 11/16/2011 Ezetimibe-Simvastatin 11/16/2011 Medications Medication Sig Dispensed Refills Start Date End Date Status aspirin 81 MG tablet Take 81 mg by mouth daily. 0 Active losartan (COZAAR) 50 MG tablet Take 1 tablet by mouth daily. 90 tablet 1 05/10/2021 Active rosuvastatin (CRESTOR) 10 MG tablet Take 1 tablet by mouth daily for 180 days. 90 tablet 1 05/10/2021 Active Zolpidem Tartrate (Ambien) 10 MG TabIndications:Inso mnia, unspecified type Take 1 Tablet by mouth at bedtime as needed for Insomnia. Gift Officer torrent per patient 90 Tablet 0 08/21/2021 Active vitamin B-12 (CYANOCOBALAMIN) 1000 MCG tablet 0 Active Acetaminophen 500 MG Cap 0 Active ALBUTEROL SULFATE 108 (90 Base) MCG/ACT Aero SolnIndications:Mil d reactive airways disease, unspecified whether persistent Inhale 2 Puffs into the lungs every 6 hours as needed for Cough, Wheezing or Shortness of Breath. 18 g 0 07/24/2023 Active fluticasone 50 MCG/ACT nasal sprayIndications:Ch ronic rhinitis 1 Mcgregor by Nasal route daily. 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 Overview: bilaterally HTN (hypertension) 07/13/2014 Hyperlipidemia LDL goal < 70 04/20/2012 Overview: Does not tolerate statins at higher doses IMO update Old [place] (myocardial infarction) 2 Overview: S/p 3 stents 2007 Insomnia 02/19/2012 Cholecystitis 02/19/2012 Periodic limb movement disorder 02/19/20 12 MARNIE (obstructive sleep apnea) with CPAP 02/19/2012 Overview: CPAP 13 cm H2O Study 01/10/12 AHI 5.8 in REM Sleep apnea 01/13/2012 Chronic LBP 11/16/2011 Overview: IMO update Sigmoid diverticulitis 11/16/2011 CAD (coronary artery disease) 11/16/2011 Overview: Mychal Simms; [place]; stents 2006; neg nuc stress test 04/11 [facility] Inguinal hernia 11/16/2011 Basal cell carcinoma 11/16/2011 Depression 11/16/2011 Chronic rhinitis 11/16/2011 Anxiety Immunizations Name Administration Dates Next Due COVID-19 (Pfizer) 07/01/2020,06/10/2020 Influenza (> 6 Months) 02/16/2014,2012,01/24/2012,02/07,01/14/2009,03/18/2005 Influenza vaccine high dose age 65 and over 01/06/2021,01/13/2020,01/16/2018,01/29,01/16/2016,01/10/2015 Pneumoccoccal(Adult) Polysac charide PPSV23 01/22/2008 Pneumococcal Conjugate PCV-13 03/06/2016 TD (STATE SUPPLIED FOR ADULT S AND CHILDREN) 07/02/2016,01/22/2008,04/29/1999 Zostavax 01/22/2008 Family History Medical History Relation Name Comments Autoimmune Negative Hx CA Breast Negative Hx CA Colon Negative Hx CA Prostate Negative Hx CAD Negative Hx CHF Negative Hx Cholesterol Level Negative Hx Diabetes Negative Hx Hypertension Negative Hx KS Negative Hx Mental Disorder Negative Hx Sleep Apnea Negative Hx Thyroid Disorder Negative Hx Social History Tobacco Use Types Packs/Day Years Used Date Smoking Tobacco: Never Smokeless Tobacco: Never Tobacco Cessation:Counseling Given: Not Answered Alcohol Use Standard Drinks/Week Comments No 0 (1 standard drink = 0.6 oz pur e alcohol) Sex Assigned at Date Recorded Not on file Job Start Date Occupation Industry Not on file Not on file Not on file Last Filed Vital Signs Vital Sign Reading Time Taken Comments Blood Pressure 130/80 07/24/2023 8:34 AM EDT Pulse 67 07/24/2023 8:34 AM EDT Temperature 36.9 ??C (98.5 ??F) 07/24/2023 8:34 AM ED T Respiratory Rate 18 07/24/2023 8:34 AM EDT Oxygen Saturation 94% 07/24/2023 8:34 AM EDT Inhaled Oxygen Concentration - - Weight 96.2 kg (212 lb) 07/24/2023 8:34 AM EDT Height 167.6 cm (5' 6 ) 07/24/2023 8:34 AM EDT Body Mass Index 34.22 07/24/2023 8:34 AM EDT Plan of Treatment Health Maintenance Due Date Last Done Comments SHINGLES VACCINE (2 of 3) 03/18/2008 01/22/2008 DEPRESSION SCREEN 11/15/2012 11/16/2011 FALL RISK ASSESSMENT 11/25/2021 11/25/2020 Covid-19 Vaccine ( season) 2023 07/01/2020, 06/10/2020 INFLUENZA (#1) 2023 01/06/2021, 12/28, 01/16/2018, Additional history exists BMI CHECK/ADVISE 04/29/2024 07/24/2023, , 05/08/2021, Additional history exists CHOLESTEROL SCREENING 11/25/2025 11/25/2020 , 02/24/2020, 04/08/2019, Additional history exists DTAP/TDAP/TD (1 - Tdap) 07/02/2026 07/03/19 17, 01/22/2008, 04/29/1999 Postponed from 07/03/2016 (Insurance/Financial) PNEUMOCOCCAL VACCINE Completed 03/06/2016, 01/22/20 08 Care Teams Inspector Of Weights And Measures Relationship Specialty Start Date End Date Grace Terrell MD PCP - General Internal Medicine 07/24/23
--- OUTSIDE RECORDS SUMMARY | 2024-06-11 13:23 | XMS_ITS | Encounter Summary ---
Author Organization [facility] Address [address] [place] [address] Care Team Providers Care Senior Gis Analyst Name Role Phone Rizwana Parson MD Primary Care Provider Unava ilGrace Capellan MD Primary Care Provider Unavaila ble Reason for Referral * EXTERNAL (Urgent) - Authorized/Booked Specialty Diagnoses / Procedures Referred By Contrafi t Referred To Contact Urology Procedures REFERRAL TO UROLOGY Ta River PA-C [address] [place] [address] [facility] Referral ID Status Reason Start Date Expiration Date V isits Requested Visits Authorized SEE NOTE Authorized/B ooked 11/06/2019 02/09/2020 1 1 Encounter Details Date Type Department Care Team Description 11/06/2019 Orders Only Adult Medicine [address] [address] Ta River PA-C Social History Tobacco Use Types Packs/Day Years [...] on filedocumented in this encounter Care Teams Senior Gis Analyst Relationship Specialty Start Date End Date Rizwana Parson MD PCP - General Internal Medicine 02/26/12 07/23/23 Grace Terrell MD PCP - General Internal Medicine 07/24/23 documented as of this encounter
--- OUTSIDE RECORDS SUMMARY | 2024-06-11 13:23 | XMS_ITS | Encounter Summary ---
Author Organization [facility] Address [address] [place] [address] Care Team Providers Care Staking Technician Name Role Phone Rizwana Parson MD Primary Care Provider Grace Hebert MD Primary Care Provider Unavaila ble Encounter Details Date Type Department Care Team Description 06/11/2019 [facility] Medical Records [address] [place] [address] Rodolfo Hardin, LUTHER Social History Tobacco Use Types Packs/Day Years [...] on filedocumented in this encounter Care Teams Staking Technician Relationship Specialty Start Date End Date Rizwana Parson MD PCP - General Internal Medicine 02/26/12 07/23/23 Grace Terrell MD PCP - General Internal Medicine 07/24/23 documented as of this encounter
--- OUTSIDE RECORDS SUMMARY | 2024-06-11 13:23 | XMS_ITS | Encounter Summary ---
Author Organization [facility] Address [address] [place] [address] Care Team Providers Care Mechanic Senior Name Role Phone Ngozi Rodrigues MD Primary Care Provider Augie Evans MD Primary Care Provider Jacobab Rizwana Ahn MD Primary Care Provider Grace Hebert MD Primary Care Provider Maria Teresa wood Encounter Details Date Type Department Care Team Description 11/14/2011 Release of Information Medical Records [address] [place] [id number] Abstract, Provider Social History Tobacco Use Types Packs/Day Years Used Date Smoking Tobacco: Never Assessed Sex Assigned at Date Recorded Not on file Job Start Date Occupation Industry Not on file Not on file Not on file documented as of this encounter Plan of Treatment Not on file documented as of this encounter Visit Diagnoses Not on filedocumented in this encounter Care Teams Mechanic Senior Relationship Specialty Start Date End Date Ngozi Rodrigues MD PCP - General Internal Medicine 10/22/11 01/14/12 Augie Stephens MD PCP - General Internal Medicine 01/15/12 02/25/12 Rizwana Parson MD PCP - General Internal Medicine 02/26/12 07/23/23 Grace Terrell MD PCP - General Internal Medicine 07/24/23 documented as of this encounter
--- OUTSIDE RECORDS SUMMARY | 2024-06-11 13:23 | XMS_ITS | Clinical Summary ---
Author Organization [facility] Address [id number] [place] [phone] Care Team Providers Care Nuclear Power Plant Engineer Name Role Phone Grace Diggs MD Primary Care Provider [phone] Encounters Date Type Department Care Team Description 04/02/[address] [place] [address] Shasta Garcia NP DME _VENDOR from Last 3 Months Surgical History Surgery Date Site/Laterality Comments BACK SURGERY as teen PROCEDURE: HISTORICAL BACK SURGERY; COMMENT: c spine bone implant ANGIOPLASTY 2006 PROCEDURE: HISTORICAL ANGIOPLASTY; COMMENT: lad,obtuse marginal HERNIA REPAIR 03/28/12 PROCEDURE: REPAIR UMBILICAL HERNIA; COMMENT: incarcerated umb hernia CHOLECYSTECTOMY 03/28/12 PROCEDURE: LAPAROSCOPY, CHOLECYSTECTOMY COLONOSCOPY around 2004 [place] PROCEDURE: HISTORICAL COLONOSCOPY; COMMENT: no polyps COLONOSCOPY [...] :CAD (coronary artery disease); COMMENT: 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, storeroom clerk Inguinal hernia, right DX:Inguin al hernia, right [...] age to complete this topic Care Teams Nuclear Power Plant Engineer Relationship Specialty Start Date End Date Grace Diggs MD PCP - General 07/24/23
--- OUTSIDE RECORDS SUMMARY | 2024-06-11 13:23 | XMS_ITS | Encounter Summary ---
Author Organization [facility] Address [address] [place] [address] Care Team Providers Care Inspector Technician Name Role Phone Rizwana Parson MD Primary Care Provider Grace Hebert MD Primary Care Provider Unavaila ble Encounter Details Date Type Department Care Team Description 03/09/2016 Business Doc Medical Records [address] [place] [address] Abstract, Provider Social History Tobacco Use Types [...] on filedocumented in this encounter Care Teams Inspector Technician Relationship Specialty Start Date End Date Rizwana Parson MD PCP - General Internal Medicine 02/26/12 07/23/23 Grace Terrell MD PCP - General Internal Medicine 07/24/23 documented as of this encounter
--- OUTSIDE RECORDS SUMMARY | 2024-06-11 13:23 | XMS_ITS | Encounter Summary ---
Author Organization [facility] Address [address] [place] [address] Care Team Providers Care Pricing Supervisor Name Role Phone Rizwana Parson MD Primary Care Provider Grace Hebert MD Primary Care Provider Unavaila ble Encounter Details Date Type Department Care Team Description 06/19/2016 Digital Research Analyst Report Medical Records [address] [place] [address] Ranjeet Funez Social History Tobacco Use Types Packs/Day Years [...] on filedocumented in this encounter Care Teams Pricing Supervisor Relationship Specialty Start Date End Date Rizwana Parson MD PCP - General Internal Medicine 02/26/12 07/23/23 Grace Terrell MD PCP - General Internal Medicine 07/24/23 documented as of this encounter
--- OUTSIDE RECORDS SUMMARY | 2024-06-11 13:23 | XMS_ITS | Encounter Summary ---
Author Organization [facility] Address [address] [place] [address] Care Team Providers Care Sql Server Dba Name Role Phone Rizwana Parson MD Primary Care Provider Grace Hebert MD Primary Care Provider Unavaila ble Encounter Details Date Type Department Care Team Description 11/08/2017 Orders Only Adult Medicine - [address] [address] Rizwana Parson MD Preoperative examination; Screening for deficiency anemia Social History Tobacco Use Types Packs/Day Years [...] on file documented as of this encounter Results * (ABNORMAL) CBC (AUTO DIFF PLATELET) (04/04/2018 11:53 AM EST) WBC 5.3 4.8 - 10.8 x10-3 04/04/2018 3:20 PM EST [facility] RBC 4.8 4.5 - 5.5 x10-6 04/04/2018 3:20 PM EST [facility] HGB 14.7 13.5 - 17.5 g/dl 04/04/2018 3:20 PM EST [facility] HCT 45.0 42 - 54 % 04/04/2018 3:20 PM EST [facility] MCV 93.6 79 - 98 fl 04/04/2018 3:20 PM EST [facility] MCH 30.6 27 - 32 pg 04/04/2018 3:20 PM EST [facility] MCHC 32.7 32 - 37 g/dl 04/04/2018 3:20 PM EST [facility] RDW 13.5 11 - 15 % 04/04/2018 3:20 PM EST [facility] PLT COUNT 148 130 - 400 x10-3 04/04/2018 3:20 PM EST [facility] MEAN PLATELET VOLUME 11.6(H) 7 - 11 fl 04/04/2018 3:20 PM EST [facility] NEUT % 59.9 41 - 85 % 04/04/2018 3:20 PM EST [facility] LYMPH % 21.1 15 - 48 % 04/04/2018 3:20 PM EST [facility] MONO % 12.2(H) 0 - 12 % 04/04/2018 3:20 PM EST [facility] EOS % 6.2(H) 0 - 5 % 04/04/2018 3:20 PM EST [facility] BASO % 0.6 0 - 2 % 04/04/2018 3:20 PM EST [facility] 04/04/2018 11:5 3 AM EST 04/04/2018 11:54 AM EST Rizwana Parson MD LAB Performing Organization Address City/State/[facility] Co de Phone Number [facility] [address] [place] [address] documented in this encounter Visit Diagnoses Diagnosis Preoperative examination Preoperative examination, unspecified Screening for deficiency anemia Screening for other and unspecified deficiency anemia documented in this encounter Care Teams Sql Server Dba Relationship Specialty Start Date End Date Rizwana Parson MD PCP - General Internal Medicine 02/26/12 07/23/23 Grace Terrell MD PCP - General Internal Medicine 07/24/23 documented as of this encounter
--- OUTSIDE RECORDS SUMMARY | 2024-06-11 13:23 | XMS_ITS | Encounter Summary ---
Author Organization [facility] Address [address] [place] [address] Care Team Providers Care Cash Shortage Investigator Name Role Phone Rizwana Parson MD Primary Care Provider Grace Hebert MD Primary Care Provider Unavaila ble Encounter Details Date Type Department Care Team Description 08/07/2017 General Maintenance Helper Report Medical Records [address] [place] [address] Rodolfo Juarez MD Social History Tobacco Use [...] on filedocumented in this encounter Care Teams Cash Shortage Investigator Relationship Specialty Start Date End Date Rizwana Parson MD PCP - General Internal Medicine 02/26/12 07/23/23 Grace Terrell MD PCP - General Internal Medicine 07/24/23 documented as of this encounter
--- OUTSIDE RECORDS SUMMARY | 2024-06-11 13:23 | XMS_ITS | Encounter Summary ---
Author Organization [facility] Address [address] [place] [address] Care Team Providers Care Plant Mechanic Name Role Phone Rizwana Parson MD Primary Care Provider Grace Hebert MD Primary Care Provider Unavaila ble Encounter Details Date Type Department Care Team Description 12/29/2015 Action Finisher Report Medical Records [address] [place] [address] Chucky Marvin MD Social History Tobacco Use [...] on filedocumented in this encounter Care Teams Plant Mechanic Relationship Specialty Start Date End Date Rizwana Parson MD PCP - General Internal Medicine 02/26/12 07/23/23 Grace Terrell MD PCP - General Internal Medicine 07/24/23 documented as of this encounter
--- OUTSIDE RECORDS SUMMARY | 2024-06-11 13:23 | XMS_ITS | Encounter Summary ---
Author Organization [facility] Address [address] [place] [address] Care Team Providers Care Gypsum Roofer Name Role Phone Rizwana Parson MD Primary Care Provider Grace Hebert MD Primary Care Provider Unavaila ble Reason for Visit * Reason Onset Date Comments immunizations 03/02/2016 Encounter Details Date Type Department Care Team Description 03/02/2016 Telephone Medicine/Pediatrics - [address] [phone] Rizwana Parson MD immunizations Social History Tobacco Use Types Packs/Day Years [...] encounter Miscellaneous Notes * Telephone Encounter - Letitia Alex - 03/02/2016 1:31 PM EDT Appointment scheduled Closing encounter * Telephone Encounter - Rachael BeckPYahairaNYahaira - 03/02/2016 1:12 PM EDT Please book nurse visit * Telephone Encounter - Rizwana Parson MD - 03/02/2016 1:06 PM EDT Prevnar is correct (not Pneumovax); order signed. * Telephone Encounter - Destini Castellon RN - 03/02/2016 10:03 AM EDT Pended pneumovax for review. Rec'd PPSV23 in 2007 * Telephone Encounter - Letitia Alex - 03/02/2016 9:50 AM EDT Questioning pneumonia vaccine How often, did he receive Message also in system for spouse Lisa Please call at number listed documented in this encounter Plan of Treatment Not on file documented as of this encounter Visit Diagnoses Diagnosis Need for prophylactic vaccination against Streptococcus pneumoniae (pneumococcus)- Primary Need for prophylactic vaccination against streptococcus pneumoniae (pneumococcus) documented in this encounter Care Teams Gypsum Roofer Relationship Specialty Start Date End Date Rizwana Parson MD PCP - General Internal Medicine 02/26/12 07/23/23 Grace Terrell MD PCP - General Internal Medicine 07/24/23 documented as of this encounter
--- OUTSIDE RECORDS SUMMARY | 2024-06-11 13:23 | XMS_ITS | Encounter Summary ---
Author Organization [facility] Address [address] [place] [address] Care Team Providers Care Intensive Care Unit Registered Nurse Name Role Phone Rizwana Parson MD Primary Care Provider Grace Hebert MD Primary Care Provider Unavaila ble Encounter Details Date Type Department Care Team Description 06/24/2015 Pharmacist Technician Report Medical Records [address] [place] [address] Chucky Marvin MD Social History Tobacco Use [...] on filedocumented in this encounter Care Teams Intensive Care Unit Registered Nurse Relationship Specialty Start Date End Date Rizwana Parson MD PCP - General Internal Medicine 02/26/12 07/23/23 Grace Terrell MD PCP - General Internal Medicine 07/24/23 documented as of this encounter
--- OUTSIDE RECORDS SUMMARY | 2024-06-11 13:23 | XMS_ITS | Encounter Summary ---
Author Organization [facility] Address [address] [place] [address] Care Team Providers Care Sports Specialist Name Role Phone Rizwana Parson MD Primary Care Provider Grace Hebert MD Primary Care Provider Unavaila ble Encounter Details Date Type Department Care Team Description 08/03/2015 Dried Yeast Supervisor Report Medical Records [address] [place] [address] Chantelle Boo PA-C [address] [place] [address] [address] [place] [address] Social History Tobacco Use Types Packs/Day Years [...] on filedocumented in this encounter Care Teams Sports Specialist Relationship Specialty Start Date End Date Rizwana Parson MD PCP - General Internal Medicine 02/26/12 07/23/23 Grace Terrell MD PCP - General Internal Medicine 07/24/23 documented as of this encounter
--- OUTSIDE RECORDS SUMMARY | 2024-06-11 13:23 | XMS_ITS | Encounter Summary ---
Author Organization [facility] Address [address] [place] [address] Care Team Providers Care Plant Operations Coordinator Name Role Phone Rizwana Parson MD Primary Care Provider Grace Hebert MD Primary Care Provider Unavaila ble Encounter Details Date Type Department Care Team Description 12/21/2015 Fixed Route Bus Operator Report Medical Records [address] [place] [address] 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 Social History Tobacco Use Types Packs/Day Years [...] filedocumented in this encounter Care Teams Plant Operations Coordinator Relationship Specialty Start Date End Date Rizwana Parson MD PCP - General Internal Medicine 02/26/12 07/23/23 Grace Terrell MD PCP - General Internal Medicine 07/24/23 documented as of this encounter
--- OUTSIDE RECORDS SUMMARY | 2024-06-11 13:23 | XMS_ITS | Encounter Summary ---
Author Organization [facility] Address [address] [place] [address] Care Team Providers Care Drum Filler Name Role Phone Rizwana Parson MD Primary Care Provider Grace Hebert MD Primary Care Provider Unavaila ble Encounter Details Date Type Department Care Team Description 03/17/2015 Wheat Shipper Report Medical Records [address] [place] [address] Social History Tobacco Use Types Packs/Day Years [...] on filedocumented in this encounter Care Teams Drum Filler Relationship Specialty Start Date End Date Rizwana Parson MD PCP - General Internal Medicine 02/26/12 07/23/23 Grace Terrell MD PCP - General Internal Medicine 07/24/23 documented as of this encounter
--- OUTSIDE RECORDS SUMMARY | 2024-06-11 13:23 | XMS_ITS | Encounter Summary ---
Author Organization [facility] Address [address] [place] [address] Care Team Providers Care Him Specialists Name Role Phone Rizwana Parson MD Primary Care Provider Grace Hebert MD Primary Care Provider Unavaila ble Encounter Details Date Type Department Care Team Description 07/25/2015 [facility] Medical Records [address] [place] [address] Chucky Marvin MD Social History Tobacco Use [...] on filedocumented in this encounter Care Teams Him Specialists Relationship Specialty Start Date End Date Rizwana Parson MD PCP - General Internal Medicine 02/26/12 07/23/23 Grace Terrell MD PCP - General Internal Medicine 07/24/23 documented as of this encounter
--- OUTSIDE RECORDS SUMMARY | 2024-06-11 13:23 | XMS_ITS | Encounter Summary ---
Author Organization [facility] Address [address] [place] [address] Care Team Providers Care Harbormaster Name Role Phone Rizwana Parson MD Primary Care Provider Grace Hebert MD Primary Care Provider Unavaila ble Encounter Details Date Type Department Care Team Description 11/23/2014 Controlled Substance Plan Medical Records [address] [place] [address] Abstract, Provider Social History Tobacco Use Types [...] on filedocumented in this encounter Care Teams Harbormaster Relationship Specialty Start Date End Date Rizwana Parson MD PCP - General Internal Medicine 02/26/12 07/23/23 Grace Terrell MD PCP - General Internal Medicine 07/24/23 documented as of this encounter
--- OUTSIDE RECORDS SUMMARY | 2024-06-11 13:23 | XMS_ITS | Encounter Summary ---
Author Organization [facility] Address [address] [place] [address] Care Team Providers Care Animal Stunner Name Role Phone Rizwana Parson MD Primary Care Provider Grace Hebert MD Primary Care Provider Unavaila ble Encounter Details Date Type Department Care Team Description 05/08/2019 [facility] Medical Records [address] [place] [address] Abstract, Provider Social History Tobacco Use Types [...] on filedocumented in this encounter Care Teams Animal Stunner Relationship Specialty Start Date End Date Rizwana Parson MD PCP - General Internal Medicine 02/26/12 07/23/23 Grace Terrell MD PCP - General Internal Medicine 07/24/23 documented as of this encounter
--- OUTSIDE RECORDS SUMMARY | 2024-06-11 13:23 | XMS_ITS | Encounter Summary ---
Author Organization [facility] Address [address] [place] [address] Care Team Providers Care Crab Fisherman Name Role Phone Rizwana Parson MD Primary Care Provider Grace Hebert MD Primary Care Provider Unavaila ble Encounter Details Date Type Department Care Team Description 08/23/2017 Environment Artist Report Medical Records [address] [place] [address] Rodolfo Chin MD Social History Tobacco Use Types Packs/Day [...] on filedocumented in this encounter Care Teams Crab Fisherman Relationship Specialty Start Date End Date Rizwana Parson MD PCP - General Internal Medicine 02/26/12 07/23/23 Grace Terrell MD PCP - General Internal Medicine 07/24/23 documented as of this encounter
--- OUTSIDE RECORDS SUMMARY | 2024-06-11 13:23 | XMS_ITS | Encounter Summary ---
Author Organization [facility] Address [address] [place] [address] Care Team Providers Care Trimming Department Blocker Name Role Phone Rizwana Parson MD Primary Care Provider Grace Hebert MD Primary Care Provider Unavaila ble Encounter Details Date Type Department Care Team Description 06/09/2015 Statistical Machine Mechanic Report Medical Records [address] [place] [address] 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 Social History Tobacco Use Types [...] on filedocumented in this encounter Care Teams Trimming Department Blocker Relationship Specialty Start Date End Date Rizwana Parson MD PCP - General Internal Medicine 02/26/12 07/23/23 Grace Terrell MD PCP - General Internal Medicine 07/24/23 documented as of this encounter
--- OUTSIDE RECORDS SUMMARY | 2024-06-11 13:23 | XMS_ITS | Encounter Summary ---
Author Organization [facility] Address [address] [place] [address] Care Team Providers Care Banking Manager Name Role Phone Rizwana Parson MD Primary Care Provider Grace Hebert MD Primary Care Provider Unavaila ble Encounter Details Date Type Department Care Team Description 12/15/2014 GAS FLOW REGULATOR/MassPat Report Medical Records [address] [place] [id number] Abstract, Provider Social History Tobacco Use Types [...] on filedocumented in this encounter Care Teams Banking Manager Relationship Specialty Start Date End Date Rizwana Parson MD PCP - General Internal Medicine 02/26/12 07/23/23 Grace Terrell MD PCP - General Internal Medicine 07/24/23 documented as of this encounter
--- OUTSIDE RECORDS SUMMARY | 2024-06-11 13:24 | XMS_ITS | Encounter Summary ---
Author Organization [facility] Address [address] [place] [address] Care Team Providers Care Director Financial Planning Name Role Phone Rizwana Parson MD Primary Care Provider Grace Hebert MD Primary Care Provider Unavaila ble Reason for Visit * Reason Onset Date Comments Provider Call Back 09/10/2014 Encounter Details Date Type Department Care Team Description 09/10/2014 Telephone Physiatry - [address] [phone] Wesly Lopez DO Provider Call Back Social History Tobacco Use Types Packs/Day Years [...] encounter Miscellaneous Notes * Telephone Encounter - Cathryn Quinn M.A. - 09/13/2014 3:49 PM EDT Patient aware * Telephone Encounter - Wesly Lopez - 09/13/2014 12:25 PM EDT I would try another injection and get him scheduled when available. I will refill his percocet. * Telephone Encounter - Cathryn Quinn M.A. - 09/13/2014 10:06 AM EDT I spoke with patient and he is aware that he needs to give injection more time. Patient states thatinjection has helped he has very little pain while sitting. Patient states that pain becomes intense when walking especially in groin. Patient would like to know if he could get a refill on pain medication, he is out. * Telephone Encounter - Bridgette Garcia - 09/13/2014 9:48 AM EDT Patient is returning Cathryn's phone call * Telephone Encounter - Cathryn Quinn M.A. - 09/13/2014 9:36 AM EDT Message left for patient to call back. * Telephone Encounter - Rosa Ferrer - 09/10/2014 3:57 PM EDT Patient is calling stating the shot only worked for so long and wants to know what should he do nowbecause his pain is back. documented in this encounter Plan of Treatment Not on file documented as of this encounter Visit Diagnoses Diagnosis Radiculitis, lumbosacral Thoracic or lumbosacral neuritis or radiculitis, unspecified Right-sided low back pain with right-sided sciatica documented in this encounter Care Teams Director Financial Planning Relationship Specialty Start Date End Date Rizwana Parson MD PCP - General Internal Medicine 02/26/12 07/23/23 Grace Terrell MD PCP - General Internal Medicine 07/24/23 documented as of this encounter
--- OUTSIDE RECORDS SUMMARY | 2024-06-11 13:24 | XMS_ITS | Encounter Summary ---
Author Organization [facility] Address [address] [place] [address] Care Team Providers Care Corporate Security Officer Name Role Phone Rizwana Parson MD Primary Care Provider Grace Hebert MD Primary Care Provider Unavaila ble Reason for Visit * Reason Onset Date Comments refill request 06/24/2020 Encounter Details Date Type Department Care Team Description 06/24/2020 Refill Medicine/Pediatrics - [address] [phone] Rizwana Parson MD refill request Social History Tobacco Use Types Packs/Day Years Used Date Smoking Tobacco: Never Smokeless Tobacco: Never Alcohol Use Standard Drinks/Week Comments No 0 (1 standard drink = 0.6 oz pur e alcohol) Sex Assigned at Date Recorded Not on file Job Start Date Occupation Industry Not on file Not on file Not on file COVID-19 Exposure Response Date Recorded In the last month, have you been in contact with someone who was confirmed or suspected to have Coronavirus / COVID-19? No / Unsure 06/23/2020 10:19 AM EST documented as of this encounter Miscellaneous Notes * Telephone Encounter - Reed Christine R.N. - 06/24/2020 11:20 AM EST Last appt 06/07/2020 Lab Results Component Value Date CHOL 135 02/24/2020 LDL 68 02/24/2020 HDL 44 02/24/2020 TRIG 117 02/24/2020 Lab Results Component Value Date NA 137 02/24/2020 K 4.4 02/24/2020 CO2 25 02/24/2020 CL 106 02/24/2020 BUN 22 02/24/2020 CREAT 0.94 02/24/2020 GLU 94 02/24/2020 CA 9.2 02/24/2020 GFR > 60 02/24/2020 Lab Results Component Value Date PROBTYPENATU 14.92 05/22/2016 BNP 10 04/08/2019 * Telephone Encounter - Rebeca Ramires - 06/24/2020 10:53 AM EST Patient would like script to be: E-PRESCRIBED/FAXED TO PHARMACY WHEN WAS THE PATIENT'S LAST APPOINTMENT IN ADULT MEDICINE? 06/07/2020 WHEN WAS THE LAST TIME THE PATIENT SAW THEIR PCP? Same as above Does patient have an upcoming appointment? no (THE MEDICATION REQUESTED IS ON THE MED LIST ABOVE) All of the medications requested were on the CURRENT MEDS list Did you check the Pharmacy information above?: YES Patient wants: 90 -day supply Is this a mail order prescription request ? YES If the refill is from a FAXED refill request what is the RX # listed on the fax? N/A Patients current insurance carrier is: [facility] / Plan: MEDICARE ([employer]) [place]/ Product Type: MEDICARE [id number] documented in this encounter Plan of Treatment Not on file documented as of this encounter Visit Diagnoses Not on filedocumented in this encounter Care Teams Corporate Security Officer Relationship Specialty Start Date End Date Rizwana Parson MD PCP - General Internal Medicine 02/26/12 07/23/23 Grace Terrell MD PCP - General Internal Medicine 07/24/23 documented as of this encounter
--- OUTSIDE RECORDS SUMMARY | 2024-06-11 13:24 | XMS_ITS | Encounter Summary ---
Author Organization [facility] Address [address] [place] [address] Care Team Providers Care Solid Waste Management Engineer Name Role Phone Rizwana Parson MD Primary Care Provider Grace Hebert MD Primary Care Provider Unavaila ble Encounter Details Date Type Department Care Team Description 11/09/2016 SCAN Medical Records [address] [place] [address] Abstract, Provider Social History Tobacco Use Types [...] on filedocumented in this encounter Care Teams Solid Waste Management Engineer Relationship Specialty Start Date End Date Rizwana Parson MD PCP - General Internal Medicine 02/26/12 07/23/23 Grace Terrell MD PCP - General Internal Medicine 07/24/23 documented as of this encounter
--- OUTSIDE RECORDS SUMMARY | 2024-06-11 13:24 | XMS_ITS | Encounter Summary ---
Author Organization [facility] Address [address] [place] [address] Care Team Providers Care Home Lighting Adviser Name Role Phone Rizwana Parson MD Primary Care Provider Grace Hebert MD Primary Care Provider Unavaila ble Reason for Visit * Reason Onset Date Comments Provider Call Back 04/30/2017 Encounter Details Date Type Department Care Team Description 04/30/2017 Telephone Medicine/Pediatrics - [address] [phone] Rizwana Parson MD Provider Call Back Social History Tobacco Use [...] encounter Miscellaneous Notes * Telephone Encounter - Leonardo Doll R.N. - 04/30/2017 11:25 AM EST See below * Telephone Encounter - Rebeca Ramires - 04/30/2017 10:02 AM EST Patient coming in today w/ I for Dr. Mae wants him to be aware that the injection he gave patient a couple weeks ago Has been working. documented in this encounter Plan of Treatment Not on file documented as of this encounter Visit Diagnoses Not on filedocumented in this encounter Care Teams Home Lighting Adviser Relationship Specialty Start Date End Date Rizwana Parson MD PCP - General Internal Medicine 02/26/12 07/23/23 Grace Terrell MD PCP - General Internal Medicine 07/24/23 documented as of this encounter
--- OUTSIDE RECORDS SUMMARY | 2024-06-11 13:24 | XMS_ITS | Encounter Summary ---
Author Organization [facility] Address [address] [place] [address] Care Team Providers Care Commercial Project Manager Name Role Phone Rizwana Parson MD Primary Care Provider Grace Hebert MD Primary Care Provider Unavaila ble Encounter Details Date Type Department Care Team Description 10/18/2014 Cultural Historian Report Medical Records [address] [place] [address] Deni Solano MD Social History Tobacco Use Types Packs/Day [...] on filedocumented in this encounter Care Teams Commercial Project Manager Relationship Specialty Start Date End Date Rizwana Parson MD PCP - General Internal Medicine 02/26/12 07/23/23 Grace Terrell MD PCP - General Internal Medicine 07/24/23 documented as of this encounter
--- OUTSIDE RECORDS SUMMARY | 2024-06-11 13:24 | XMS_ITS | Encounter Summary ---
Author Organization [facility] Address [address] [place] [address] Care Team Providers Care Dry Cleaning Teacher Name Role Phone Rizwana Parson MD Primary Care Provider Grace Hebert MD Primary Care Provider Unavaila ble Encounter Details Date Type Department Care Team Description 05/06/2017 Project Manager Finance Report Medical Records [address] [place] [address] Abstract, Provider Social History Tobacco Use Types [...] on filedocumented in this encounter Care Teams Dry Cleaning Teacher Relationship Specialty Start Date End Date Rizwana Parson MD PCP - General Internal Medicine 02/26/12 07/23/23 Grace Terrell MD PCP - General Internal Medicine 07/24/23 documented as of this encounter
[2024-06-11 17:32] LABS: MANUAL DIFF FLAG NO
[2024-06-11 17:40] LABS: Basophils Percent Auto 0.6 % (0-2); Eosinophils Absolute Auto 0.4 X10*3/uL (0.0-0.4); Eosinophils Percent Auto 7.6 % (0-4); Hematocrit 42.2 % (42.0-52.0); Hemoglobin 14.7 g/dl (14.0-18.0); Imm Gran Abs Auto 0.03 X10*3/uL (0.00-0.03); Imm Gran Pct Auto 0.6 % (0.0-0.4); Lymphocytes Percent Auto 18.9 % (20-40); Mean Corpuscular HGB Conc 34.8 g/dl (31.0-36.0); Mean Corpuscular Hemoglobin 31.5 pg (27.0-33.0); Mean Corpuscular Volume 90.4 fL (80.0-98.0); Mean Platelet Volume 10.7 fL (9.4-12.4); Monocytes Absolute Auto 0.9 X10*3/uL (0.1-1.2); Monocytes Percent Auto 17.5 % (2-11); Neutrophils Absolute Auto 2.8 x10*3/uL (2.0-8.3); Neutrophils Percent Auto 54.8 % (45-73); Platelet Count 149 X10*3/uL (160-400); Red Blood Count 4.67 X10*6/uL (4.60-5.80)
[2024-06-11 18:07] LABS: Alanine Aminotransferase 33 U/L (0-40); Albumin Level 3.9 g/dL (3.5-5.0); Alkaline Phosphatase 75 U/L (39-117); Anion Gap 10 (12-20); Aspartate Amino Transferase 37 U/L (5-37); Bilirubin Total 0.7 mg/dL (0.0-1.0); Blood Urea Nitrogen 16 mg/dL (9-16); Calcium 8.6 mg/dL (8.4-10.2); Carbon Dioxide 22 mmol/L (22-29); Chloride 110 mmol/L (96-108); Estimated Glomerular Filt Rate > 60; Glucose Random 114 mg/dL (60-115); Potassium 3.9 mmol/L (3.3-5.1); Sodium 138 mmol/L (135-145); Total Protein 7.4 g/dL (6.5-8.0)
[2024-06-12 07:06] LABS: Estimated Average Glucose 120 mg/dL; Hemoglobin A1C 152.9918 umol/L; Hemoglobin A1c % 5.8 % (<6.0); Total Hemoglobin (HGBA1C) 3838.1875 umol/L
== END 2024-06-11 13:16 | disposition home or self-care (01) ==
LOC: HO.WFDLDS 13:15
PROVIDERS: Visit Provider Physician Assistant
DX: I10 Essential (primary) hypertension (principal); R73.03 Prediabetes; R73.01 Impaired fasting glucose; R05.9 Cough, unspecified; J30.9 Allergic rhinitis, unspecified; G47.33 Obstructive sleep apnea (adult) (pediatric)
CPT/HCPCS: 36415; 80053; 83036; 85025; 99212

== ENCOUNTER 2024-06-25 14:47 | Outpatient (AMB) | payer MEDICARE, SELFPAY ==
--- NOTE | 2024-06-25 14:58 | A.OFFPC_ITS ---
Vital Signs 06/25/24 15:00 Height 5 ft 5.75 in Weight 215 lb BMI 35.0 BP 130/72 Blood Pressure Location Lt brachial Position Sitting Respiration 22 H Pulse 70 Pulse Source Pulse Oximeter Pulse Oximetry (%) 96 Oxygen Delivery Method Room Air Intake Visit Reasons: 2 wk f/u cough Intake Note: Follow up Mixing Tumbler Operator Required: No Allergies simvastatin [Zocor] Allergy (Unknown, Verified 06/25/24 14:59) Hives Tobacco use date assessed: 06/25/24 Dental Screening Dental Screen Date: 01/01/24 HPI 2 wk f/u cough HPI Details History of Present Illness The patient is an 84-year-old male presenting with a follow-up appointment for chronic condition management and symptom evaluation. He reports a history of a cough that has shown improvement, with a nasal saline. He states that the cough has completely resolved. The cough's initial onset and associated symptoms were not specified, but there was mention of environmental factors potentially contributing to a runny nose, which has been addressed with saline nasal irrigation. Previous interventions included consultation with an ENT, which the patient canceled after improvement was noted. The patient also discusses ongoing sleep apnea management challenges. He has expressed frustration over difficulties in obtaining the appropriate CPAP equipment due to insurance and logistical issues. He reports previous evaluations at [facility] and [facility], with problems in acquiring the correct CPAP mask components. The patient also notes preexisting anxiety managed with citalopram, which appears to stabilize his condition. Zolpidem is helpful for his insomnia. Additionally, the patient mentions he is managing essential hypertension with losartan, hyperlipidemia with Crestor, resulting in adequate control of these conditions. He is labeled as prediabetic with his glucose levels not showing significant changes recent tests, and expresses concerns regarding past labeling of prediabetes given his age and health status. Health Maintenance - Regular use of nasal saline irrigation for rhinitis. - Continued prescription of citalopram f or anxiety management. - Consistent use of losartan for blood p ressure control. - Ongoing treatment with Crestor for hyp erlipidemia. - Zolpidem for sleep maintenance. - Monitoring for prediabetes due to risk factors, despite stable glucose levels. Social History - The patient has expressed frustration concerning insurance-related complications and medical billing issues. - He reports involvement in lifestyle mo difications to secure better health insurance and intends to choose providers independently in the future. - No recent nutrition, exercise habits, or substance use were discussed. Review of Systems - Respiratory: Reports cough and improve ment with nasal irrigation. - ENT: Denies current runny nose. - Psychological: Reports management of a nxiety with medication. - Sleep: Denies current new sleep issues ; ongoing management of insomnia. Physical Exam General: Well developed, well nourished, in no acute distress. Appears stated age. Cardiac: RRR, no murmurs Lungs: clear, equal breath sounds Abdomen: soft, nontender, no CVA tenderness Extremities: no edema Neuro: alert, oriented x3, mood appropriate Plan - Reinforce the use of continued nasal s maren irrigation to manage rhinitis symptoms. - Encourage follow-up with the [facility] pulmonology department for CPAP equipment management, emphasizing the importance of accurate mask fitting and device procurement. - Reaffirm current medication regimen in cluding citalopram, losartan, Zolpidem, and Crestor. - Monitor blood sugar levels regularly g iven the prediabetic diagnosis, while noting stable glucose status. - Arrange a follow-up visit in three to four months to assess ongoing insomnia management with Zolpidem and review for any changes or additional concerns. - Instruct the patient to address issues related to health insurance to ensure continuous management of chronic conditions with chosen healthcare providers. [facility] Medical History Neck injury Vertigo Reactive airway disease Prediabetes Polyneuropathy Periodic limb movement disorder Osteoarthritis of left knee Osteoarthritis of hip MARNIE on CPAP Myocardial infarction Major depressive disorder in partial remission Insomnia Hypoxia Hyperlipidemia Hearing aid worn Dyspnea and respiratory abnormalities Diverticulitis of sigmoid colon Coronary atherosclerosis Coronary arteriosclerosis Chronic rhinitis Chronic low back pain Benign essential HTN Arthritis Adjustment disorder with mixed anxiety and depressed mood Surgical History H/O heart artery stent H/O colonoscopy H/O hernia repair Hx laparoscopic cholecystectomy Family History Mother Alzheimer dementia Social History (Updated 06/11/24 @ 12:56 by Candy Marie CMA) Housing: House Alcohol intake: current Patient Tobacco Use Status: Never used Tobacco e-Cigarette/Vaping Use: Never Used Second Hand Smoke Exposure: No service: No Current occupational status: retired Cognitive needs: No Hearing needs: No Vision needs: No Questionnaire Thrive Questionnaire Date Thrive assessed: 06/25/24 I am a: Patient What is your living situation today?: I choose not to answer this question Within the past 12 months, did the food you bought not last and you didn't have the money to get more?: I choose not to answer this question Within the past 12 months, did you worry whether your food would run out before you got money to buy more?: I choose not to answer this question Do you have trouble paying for medicines?: I choose not to answer this question Do you have trouble getting transportation to medical appointments?: I choose not to answer this question Do you have trouble paying your heating and electricity bill?: I choose not to answer this question Do you have trouble taking care of your child, family member or friend?: I cho ose not to answer this question Do you have trouble with day-to-day activities such as bathing, preparing meals, shopping, managing finances, etc.?: I choose not to answer this question Are you currently unemployed and looking for a job?: I choose not to answer this question Are you interested in more education?: I choose not to answer this question Please select the resources that you would like help with: None Currently or been in a relationship where the following occur: I choose not to answer THRIVE Score: 0 AUDIT C Alcohol Use Questionnaire (AUDIT-C) 1. How often do you have a drink containing alcohol?: Never Total Score: 0 KJ-7 AMB Questionnaire KJ-7 Date KJ - 7 assessed: 01/01/24 Feeling nervous, anxious, or on edge: 0 = Not at all Not being able to stop or control worryin = Not at all Source: Developed by Drs. Deni Jones, Marcela Syed, Stanley Stock and colleagues, with an educational ca from [employer]. Physical exam (Primary Care) Vital Signs: Last Vital Signs Pulse 70 06/25/24 15:00 Resp 22 H 06/25/24 15:00 BP 130/72 06/25/24 15:00 Pulse Ox 96 06/25/24 15:00 Oxygen Delivery Method Room Air 06/25/24 15:00 BMI result Body Mass Index 35.0 Tobacco/Smoking Status: Tobacco use Status Tobacco use date assessed 06/25/24 06/25/24 15:04 Patient Tobacco Use Status Never used Tobacco 06/25/24 15:04 e-Cigarette/Vaping Use Never Used 06/25/24 15:04 Thrive Assessment: Date of Thrive Assessment Date Thrive assessed 06/25/24 06/25/24 15:04 Currently or been in a relationship where the following occur: I choose not to answer Coding Level of Care Code Est Pt Level 4 (65107) Complex EM visit Add On G2211 Diagnoses Recurrent major depressive disorder, in partial remission F33.41 Major depression recurrence: recurrent Prediabetes R73.03 Cough R05.9 Benign essential HTN I10 Assessment & Plan Assessment & Plan (1) Major depressive disorder in partial remission: Code(s): F32.4 - Major depressive disorder, single episode, in partial remission Category: Medical Qualifiers: Major depression recurrence: recurrent Qualified Code(s): F33.41 - Major depressive disorder, recurrent, in partial remission (2) Prediabetes: Code(s): R73.03 - Prediabetes Category: Medical (3) Cough: Code(s): R05.9 - Cough, unspecified Category: Medical (4) Benign essential HTN: Code(s): I10 - Essential (primary) hypertension Category: Medical Plan .
[2024-06-25 15:00] VITALS: BP 130/72; PULSE 70; RESP 22; O2SAT 96; BMI 35.0
--- OUTSIDE RECORDS SUMMARY | 2024-06-25 18:05 | XMS_ITS | Encounter Summary ---
Author Organization [facility] Address [address] [place] [address] Care Team Providers Care Electrical Inspector Name Role Phone Rizwana Parson MD Primary Care Provider Grace Hebert MD Primary Care Provider Unavaila ble Encounter Details Date Type Department Care Team Description 12/15/2014 CHEMICALS FERMENTATION OPERATOR/[facility] Report Medical Records [address] [place] [id number] Abstract, Provider Social History Tobacco Use Types [...] on filedocumented in this encounter Care Teams Electrical Inspector Relationship Specialty Start Date End Date Rizwana Parson MD PCP - General Internal Medicine 02/26/12 07/23/23 Grace Terrell MD PCP - General Internal Medicine 07/24/23 documented as of this encounter
--- OUTSIDE RECORDS SUMMARY | 2024-06-25 18:05 | XMS_ITS | Encounter Summary ---
Author Organization [facility] Address [address] [place] [address] Care Team Providers Care Wellness Program Coordinator Name Role Phone Rizwana Parson MD Primary Care Provider Grace Hebert MD Primary Care Provider Unavaila ble Encounter Details Date Type Department Care Team Description 04/10/2019 PNO Controlled Substance Contract Medical Records [address] [place] [address] Abstract, Provider Social History Tobacco Use Types [...] on filedocumented in this encounter Care Teams Wellness Program Coordinator Relationship Specialty Start Date End Date Rizwana Parson MD PCP - General Internal Medicine 02/26/12 07/23/23 Grace Terrell MD PCP - General Internal Medicine 07/24/23 documented as of this encounter
--- OUTSIDE RECORDS SUMMARY | 2024-06-25 18:05 | XMS_ITS | Encounter Summary ---
Author Organization [facility] Address [address] [place] [address] Care Team Providers Care Senior Product Development Manager Name Role Phone Rizwana Parson MD Primary Care Provider Grace Hebert MD Primary Care Provider Unavaila ble Encounter Details Date Type Department Care Team Description 05/11/2016 [facility] Medical Records [address] [place] [id number] Abstract, Provider Social History Tobacco Use Types [...] filedocumented in this encounter Care Teams Senior Product Development Manager Relationship Specialty Start Date End Date Rizwana Parson MD PCP - General Internal Medicine 02/26/12 07/23/23 Grace Terrell MD PCP - General Internal Medicine 07/24/23 documented as of this encounter
--- OUTSIDE RECORDS SUMMARY | 2024-06-25 18:05 | XMS_ITS | Encounter Summary ---
Author Organization [facility] Address [address] [place] [address] Care Team Providers Care Final Tester Name Role Phone Rizwana Parson MD Primary Care Provider Unava ilable Grace Terrell MD Primary Care Provider Unavaila ble Encounter Details Date Type Department Care Team Description 04/10/2017 Ticket Marker Report Medical Records [address] [place] [address] Yina Wood MD [address] [facility] [address] [place] [address] Social History Tobacco Use Types Packs/Day Years [...] on filedocumented in this encounter Care Teams Final Tester Relationship Specialty Start Date End Date Rizwana Parson MD PCP - General Internal Medicine 02/26/12 07/23/23 Grace Terrell MD PCP - General Internal Medicine 07/24/23 documented as of this encounter
--- OUTSIDE RECORDS SUMMARY | 2024-06-25 18:05 | XMS_ITS | Encounter Summary ---
Author Organization [facility] Address [address] [place] [address] Care Team Providers Care Web Programmer Name Role Phone Rizwana Parson MD Primary Care Provider Grace Hebert MD Primary Care Provider Unavaila ble Reason for Referral * Non HARPER (Routine) - Authorized/Booked Specialty Diagnoses / Procedures Referred By Contrafi t Referred To Contact Pulmonology Procedures REFERRAL TO PULMONOLOGY Nadia Mims PA-C [address] [place] [id number] Juan Paulino MD [address] [place] [phone] Referral ID Status Reason Start Date Expiration Date V isits Requested Visits Authorized [id number] Authorized/B ooked 07/28/2021 02/28/2022 1 1 Reason for Visit * Reason Onset Date Comments REFERRAL 07/27/2021 Encounter Details Date Type Department Care Team Description 07/27/2021 Telephone Medicine/Pediatrics - [address] [address] Rizwana Parson MD REFERRAL Social History Tobacco Use Types Packs/Day Years [...] or suspected to have Coronavirus / COVID-19? Unable to assess 06/28/2021 9:39 AM EST documented as of this encounter Miscellaneous Notes * Telephone Encounter - Rizwana Parson MD - 08/09/2021 2:50 PM EDT Noted. * Telephone Encounter - Li Humphries - 07/28/2021 10:53 AM EDT Attempted to call pt, rang several times then went to busy tone. Not able to leave message. * Telephone Encounter - Nadia Mims PA-C - 07/28/2021 10:26 AM EDT External referral placed. He may want to request that his pulmonology notes from [place] get sent over to new scholarship counselor office for them to have an review. * Telephone Encounter - Li Humphries - 07/28/2021 9:57 AM EDT Note below states Patient does not want to go through [place]. He would like to go to Dr Juan Paulino, since he's seen him before in the past. Please advise * Telephone Encounter - Nadia Mims PA-C - 07/27/2021 5:31 PM EDT I am confused. He just saw pulmonology through our office this month. Does he still want a get referred externally? * Telephone Encounter - James Guallpa - 07/27/2021 2:39 PM EDT Couldn't figure out how to pend External Pulmo Referral. Please review in absence of PCP. Thank you! * Telephone Encounter - Fernanda brigitte Ackerman - 07/27/2021 2:36 PM EDT Patient calling in regards to referral to pulmo from 03/11. Patient does not want to go through [place]. He would like to go to Dr Juan Paulino, since he's seen him before in the past. Please advise documented in this encounter Plan of Treatment Not on file documented as of this encounter Visit Diagnoses Not on filedocumented in this encounter Care Teams Web Programmer Relationship Specialty Start Date End Date Rizwana Parson MD PCP - General Internal Medicine 02/26/12 07/23/23 Grace Terrell MD PCP - General Internal Medicine 07/24/23 documented as of this encounter
--- OUTSIDE RECORDS SUMMARY | 2024-06-25 18:05 | XMS_ITS | Encounter Summary ---
Author Organization [facility] Address [address] [place] [address] Care Team Providers Care Traveling Missionary Name Role Phone Rizwana Parson MD Primary Care Provider Grace Hebert MD Primary Care Provider Unavaila ble Encounter Details Date Type Department Care Team Description 05/06/2017 Metal Washing Machine Operator Report Medical Records [address] [place] [address] Social History Tobacco Use Types Packs/Day Years [...] on filedocumented in this encounter Care Teams Traveling Missionary Relationship Specialty Start Date End Date Rizwana Parson MD PCP - General Internal Medicine 02/26/12 07/23/23 Grace Terrell MD PCP - General Internal Medicine 07/24/23 documented as of this encounter
--- OUTSIDE RECORDS SUMMARY | 2024-06-25 18:05 | XMS_ITS | Encounter Summary ---
Author Organization [facility] Address [address] [place] [address] Care Team Providers Care Pharmacy Coordinator Name Role Phone Ngozi Rodrigues MD Primary Care Provider Augie Evans MD Primary Care Provider Jacobab Rizwana Ahn MD Primary Care Provider Grace Hebert MD Primary Care Provider Maria Teresa wood Encounter Details Date Type Department Care Team Description 11/14/2011 Release of Information Medical Records [address] [place] [id number] Abstract, Provider Social History Tobacco Use Types Packs/Day Years Used Date Smoking Tobacco: Never Assessed Sex Assigned at Date Recorded Not on file Job Start Date Occupation Industry Not on file Not on file Not on file documented as of this encounter Plan of Treatment Not on file documented as of this encounter Visit Diagnoses Not on filedocumented in this encounter Care Teams Pharmacy Coordinator Relationship Specialty Start Date End Date Ngozi Rodrigues MD PCP - General Internal Medicine 10/22/11 01/14/12 Augie Stephens MD PCP - General Internal Medicine 01/15/12 02/25/12 Rizwana Parson MD PCP - General Internal Medicine 02/26/12 07/23/23 Grace Terrell MD PCP - General Internal Medicine 07/24/23 documented as of this encounter
--- OUTSIDE RECORDS SUMMARY | 2024-06-25 18:05 | XMS_ITS | Encounter Summary ---
Author Organization [facility] Address [address] [place] [address] Care Team Providers Care Conference Director Name Role Phone Rizwana Parson MD Primary Care Provider Grace Hebert MD Primary Care Provider Unavaila ble Encounter Details Date Type Department Care Team Description 06/10/2018 [facility] Medical Records [address] [place] [id number] Abstract, Provider Social History Tobacco Use Types [...] on filedocumented in this encounter Care Teams Conference Director Relationship Specialty Start Date End Date Rizwana Parson MD PCP - General Internal Medicine 02/26/12 07/23/23 Grace Terrell MD PCP - General Internal Medicine 07/24/23 documented as of this encounter
--- OUTSIDE RECORDS SUMMARY | 2024-06-25 18:05 | XMS_ITS | Encounter Summary ---
Author Organization [facility] Address [address] [place] [address] Care Team Providers Care Business Systems Architect Name Role Phone Rizwana Parson MD Primary Care Provider Grace Hebert MD Primary Care Provider Unavaila ble Encounter Details Date Type Department Care Team Description 01/20/2018 Sales And Leasing Agent Report Medical Records [address] [place] [address] Chucky Marvin MD Social History Tobacco Use [...] on filedocumented in this encounter Care Teams Business Systems Architect Relationship Specialty Start Date End Date Rizwana Parson MD PCP - General Internal Medicine 02/26/12 07/23/23 Grace Terrell MD PCP - General Internal Medicine 07/24/23 documented as of this encounter
--- OUTSIDE RECORDS SUMMARY | 2024-06-25 18:05 | XMS_ITS | Encounter Summary ---
Author Organization [facility] Address [address] [place] [address] Care Team Providers Care Instructional Coach Name Role Phone Rizwana Parson MD Primary Care Provider Grace Hebert MD Primary Care Provider Unavaila ble Encounter Details Date Type Department Care Team Description 06/13/2017 Webbing Inspector Report Medical Records [address] [place] [address] Abstract, Provider Social History Tobacco Use Types [...] on filedocumented in this encounter Care Teams Instructional Coach Relationship Specialty Start Date End Date Rizwana Parson MD PCP - General Internal Medicine 02/26/12 07/23/23 Grace Terrell MD PCP - General Internal Medicine 07/24/23 documented as of this encounter
--- OUTSIDE RECORDS SUMMARY | 2024-06-25 18:05 | XMS_ITS | Encounter Summary ---
Author Organization [facility] Address [address] [place] [address] Care Team Providers Care Program Management Professional Name Role Phone Rizwana Parson MD Primary Care Provider Grace Hebert MD Primary Care Provider Unavaila ble Reason for Visit * Reason Onset Date Comments Provider Call Back 09/10/2014 Encounter Details Date Type Department Care Team Description 09/10/2014 Telephone Physiatry - [address] [phone] Wesly Lopez DO Provider Call Back Social [...] sciatica documented in this encounter Care Teams Program Management Professional Relationship Specialty Start Date End Date Rizwana Parson MD PCP - General Internal Medicine 02/26/12 07/23/23 Grace Terrell MD PCP - General Internal Medicine 07/24/23 documented as of this encounter
--- OUTSIDE RECORDS SUMMARY | 2024-06-25 18:05 | XMS_ITS | Encounter Summary ---
Author Organization [facility] Address [address] [place] [address] Care Team Providers Care Sales Account Associate Name Role Phone Rizwana Parson MD Primary Care Provider Grace Hebert MD Primary Care Provider Unavaila ble Encounter Details Date Type Department Care Team Description 11/08/2017 Orders Only Adult Medicine - [address] [address] Rizwana Parson MD Preoperative examination; Screening for [...] Rizwana Parson MD LAB Performing Organization Address City/State/[facility] Co de Phone Number [facility] [address] [place] [address] documented in this encounter Visit Diagnoses Diagnosis Preoperative examination Preoperative examination, unspecified Screening for deficiency anemia Screening for other and unspecified deficiency anemia documented in this encounter Care Teams Sales Account Associate Relationship Specialty Start Date End Date Rizwana Parson MD PCP - General Internal Medicine 02/26/12 07/23/23 Grace Terrell MD PCP - General Internal Medicine 07/24/23 documented as of this encounter
--- OUTSIDE RECORDS SUMMARY | 2024-06-25 18:05 | XMS_ITS | Encounter Summary ---
Author Organization [facility] Address [address] [place] [address] Care Team Providers Care Server Security Administrator Name Role Phone Rizwana Parson MD Primary Care Provider Grace Hebert MD Primary Care Provider Unavaila ble Encounter Details Date Type Department Care Team Description 03/09/2016 Business Doc Medical Records [address] [place] [address] Abstract, Provider Social History Tobacco Use Types [...] on filedocumented in this encounter Care Teams Server Security Administrator Relationship Specialty Start Date End Date Rizwana Parson MD PCP - General Internal Medicine 02/26/12 07/23/23 Grace Terrell MD PCP - General Internal Medicine 07/24/23 documented as of this encounter
--- OUTSIDE RECORDS SUMMARY | 2024-06-25 18:05 | XMS_ITS | Encounter Summary ---
Author Organization [facility] Address [address] [place] [address] Care Team Providers Care Transition Specialist Name Role Phone Rizwana Parson MD Primary Care Provider Grace Hebert MD Primary Care Provider Unavaila ble Reason for Visit * Reason Comments E-prescribe Rx Request Encounter Details Date Type Department Care Team Description 01/07/2015 Refill Medicine/Pediatrics - [address] [phone] Rizwana Parson MD E-prescribe Rx Request Social [...] YES Patients current insurance carrier is: Payor: MEDICARE-Gotta'go Personal Care Device / Plan: MEDICARE ([employer]) [place]/ Product Type: MEDICARE [id number] documented in this encounter Plan of Treatment Not on file documented as of this encounter Visit Diagnoses Not on filedocumented in this encounter Care Teams Transition Specialist Relationship Specialty Start Date End Date Rizwana Parson MD PCP - General Internal Medicine 02/26/12 07/23/23 Grace Terrell MD PCP - General Internal Medicine 07/24/23 documented as of this encounter
--- OUTSIDE RECORDS SUMMARY | 2024-06-25 18:05 | XMS_ITS | Encounter Summary ---
Author Organization [facility] Address [address] [place] [address] Care Team Providers Care Soaping Machine Back Tender Name Role Phone Rizwana Parson MD Primary Care Provider Grace Hebert MD Primary Care Provider Unavaila ble Encounter Details Date Type Department Care Team Description 05/06/2017 Manager Wound Care Report Medical Records [address] [place] [address] Abstract, Provider Social History Tobacco Use Types [...] on filedocumented in this encounter Care Teams Soaping Machine Back Tender Relationship Specialty Start Date End Date Rizwana Parson MD PCP - General Internal Medicine 02/26/12 07/23/23 Grace Terrell MD PCP - General Internal Medicine 07/24/23 documented as of this encounter
--- OUTSIDE RECORDS SUMMARY | 2024-06-25 18:05 | XMS_ITS | Encounter Summary ---
Author Organization [facility] Address [address] [place] [address] Care Team Providers Care Folder Seamer Name Role Phone Rizwana Parson MD Primary Care Provider Grace Hebert MD Primary Care Provider Unavaila ble Encounter Details Date Type Department Care Team Description 11/25/2017 Biometric Screener Report Medical Records [address] [place] [address] Rodolfo Juarez MD Social History Tobacco Use [...] on filedocumented in this encounter Care Teams Folder Seamer Relationship Specialty Start Date End Date Rizwana Parson MD PCP - General Internal Medicine 02/26/12 07/23/23 Grace Terrell MD PCP - General Internal Medicine 07/24/23 documented as of this encounter
--- OUTSIDE RECORDS SUMMARY | 2024-06-25 18:05 | XMS_ITS | Encounter Summary ---
Author Organization [facility] Address [address] [place] [address] Care Team Providers Care General Office Assistant Name Role Phone Rizwana Parson MD Primary Care Provider Grace Hebert MD Primary Care Provider Unavaila ble Encounter Details Date Type Department Care Team Description 06/09/2015 Director Of Special Education Report Medical Records [address] [place] [address] 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 Social History Tobacco Use Types [...] on filedocumented in this encounter Care Teams General Office Assistant Relationship Specialty Start Date End Date Rizwana Parson MD PCP - General Internal Medicine 02/26/12 07/23/23 Grace Terrell MD PCP - General Internal Medicine 07/24/23 documented as of this encounter
--- OUTSIDE RECORDS SUMMARY | 2024-06-25 18:05 | XMS_ITS | Clinical Summary ---
Author Organization [facility] Address [address] [place] [phone] Care Team Providers Care Combat Information Center Officer Name Role Phone Grace Diggs MD Primary Care Provider [phone] Encounters Date Type Department Care Team Description 04/02/[address] [place] [address] Shasta Garcia NP DME _VENDOR from Last 3 Months Surgical History Surgery Date Site/Laterality Comments BACK SURGERY as teen PROCEDURE: HISTORICAL BACK SURGERY; COMMENT: c spine bone implant ANGIOPLASTY 2006 PROCEDURE: HISTORICAL ANGIOPLASTY; COMMENT: lad,obtuse marginal HERNIA REPAIR 03/28/12 PROCEDURE: REPAIR UMBILICAL HERNIA; COMMENT: incarcerated umb hernia CHOLECYSTECTOMY 03/28/12 PROCEDURE: LAPAROSCOPY, CHOLECYSTECTOMY COLONOSCOPY around 2004 [place] PROCEDURE: HISTORICAL COLONOSCOPY; COMMENT: no polyps COLONOSCOPY 06/28/14 PROCEDURE: [place] COLONOSCOPY STOMA W/RMVL AINSLEY POLYP/OTH LES SNARE; COMMENT: small adenma and tics; would not repeat Medical History Medical History Date Comments Heart attack (CMS/HCC) 10/2004 DX:Heart attack (HCC); COMMENT: 3 stents Anxiety DX:Anxiety Hyperlipidemia DX:Hyperlipidemi a Chronic LBP DX:Chronic LBP Sigmoid diverticulitis DX:Sigmoi d diverticulitis CAD (coronary artery disease) DX :CAD (coronary artery disease); COMMENT: 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, solar energy specialist Inguinal hernia, right DX:Inguin al hernia, right [...] age to complete this topic Care Teams Combat Information Center Officer Relationship Specialty Start Date End Date Grace Diggs MD PCP - General 07/24/23
--- OUTSIDE RECORDS SUMMARY | 2024-06-25 18:05 | XMS_ITS | Encounter Summary ---
Author Organization [facility] Address [address] [place] [address] Care Team Providers Care Air Brake Mechanic Name Role Phone Rizwana Parson MD Primary Care Provider Grace Hebert MD Primary Care Provider Unavaila ble Encounter Details Date Type Department Care Team Description 12/29/2015 Relay Assembler Report Medical Records [address] [place] [address] Chucky Marvin MD Social History Tobacco Use [...] on filedocumented in this encounter Care Teams Air Brake Mechanic Relationship Specialty Start Date End Date Rizwana Parson MD PCP - General Internal Medicine 02/26/12 07/23/23 Grace Terrell MD PCP - General Internal Medicine 07/24/23 documented as of this encounter
--- OUTSIDE RECORDS SUMMARY | 2024-06-25 18:05 | XMS_ITS | Encounter Summary ---
Author Organization [facility] Address [address] [place] [address] Care Team Providers Care Heating Element Winder Name Role Phone Rizwana Parson MD Primary Care Provider Grace Hebert MD Primary Care Provider Unavaila ble Encounter Details Date Type Department Care Team Description 06/30/2014 Business Doc Medical Records [address] [place] [address] Abstract, Provider Social History Tobacco Use Types [...] on filedocumented in this encounter Care Teams Heating Element Winder Relationship Specialty Start Date End Date Rizwana Parson MD PCP - General Internal Medicine 02/26/12 07/23/23 Grace Terrell MD PCP - General Internal Medicine 07/24/23 documented as of this encounter
--- OUTSIDE RECORDS SUMMARY | 2024-06-25 18:05 | XMS_ITS | Encounter Summary ---
Author Organization [facility] Address [address] [place] [address] Care Team Providers Care Learning Support Teacher Name Role Phone Rizwana Parson MD Primary Care Provider Grace Hebert MD Primary Care Provider Unavaila ble Encounter Details Date Type Department Care Team Description 07/25/2015 [facility] Medical Records [address] [place] [address] Chucky Marvin MD Social History Tobacco Use [...] on filedocumented in this encounter Care Teams Learning Support Teacher Relationship Specialty Start Date End Date Rizwana Parosn MD PCP - General Internal Medicine 02/26/12 07/23/23 Grace Terrell MD PCP - General Internal Medicine 07/24/23 documented as of this encounter
--- OUTSIDE RECORDS SUMMARY | 2024-06-25 18:05 | XMS_ITS | Encounter Summary ---
Author Organization [facility] Address [address] [place] [address] Care Team Providers Care Manager Meeting Name Role Phone Rizwana Parson MD Primary Care Provider Grace Hebert MD Primary Care Provider Unavaila ble Reason for Visit * Reason Onset Date Comments immunizations 03/02/2016 Encounter Details Date Type Department Care Team Description 03/02/2016 Telephone Medicine/Pediatrics - [address] [phone] Rizwana Parson MD immunizations Social History Tobacco [...] (pneumococcus) documented in this encounter Care Teams Manager Meeting Relationship Specialty Start Date End Date Rizwana Parson MD PCP - General Internal Medicine 02/26/12 07/23/23 Grace Terrell MD PCP - General Internal Medicine 07/24/23 documented as of this encounter
--- OUTSIDE RECORDS SUMMARY | 2024-06-25 18:05 | XMS_ITS | Encounter Summary ---
Author Organization [facility] Address [address] [place] [address] Care Team Providers Care Sales Product Specialist Name Role Phone Rizwana Parson MD Primary Care Provider Grace Hebert MD Primary Care Provider Unavaila ble Encounter Details Date Type Department Care Team Description 07/04/2014 [facility] Medical Records [address] [place] [address] Edmund Arrieta NP Social History Tobacco Use [...] on filedocumented in this encounter Care Teams Sales Product Specialist Relationship Specialty Start Date End Date Rizwana Parson MD PCP - General Internal Medicine 02/26/12 07/23/23 Grace Terrell MD PCP - General Internal Medicine 07/24/23 documented as of this encounter
--- OUTSIDE RECORDS SUMMARY | 2024-06-25 18:05 | XMS_ITS | Encounter Summary ---
Author Organization [facility] Address [address] [place] [address] Care Team Providers Care Solderer Production Line Name Role Phone Rizwana Parson MD Primary Care Provider Grace Hebert MD Primary Care Provider Unavaila ble Encounter Details Date Type Department Care Team Description 10/18/2014 Paper Cutting Machine Operator Report Medical Records [address] [place] [address] Deni Solano MD Social History Tobacco Use [...] on filedocumented in this encounter Care Teams Solderer Production Line Relationship Specialty Start Date End Date Rizwana Parson MD PCP - General Internal Medicine 02/26/12 07/23/23 Grace Terrell MD PCP - General Internal Medicine 07/24/23 documented as of this encounter
--- OUTSIDE RECORDS SUMMARY | 2024-06-25 18:05 | XMS_ITS | Encounter Summary ---
Author Organization [facility] Address [address] [place] [address] Care Team Providers Care Professor Of Communication And Writing Name Role Phone Ngozi Rodrigues MD Primary Care Provider Augie Evans MD Primary Care Provider Jacobab Rizwana Ahn MD Primary Care Provider Grace Hebert MD Primary Care Provider Maria Teresa wood Encounter Details Date Type Department Care Team Description 11/16/2011 Business Doc Medical Records [address] [place] [id number] Abstract, Provider Social History Tobacco Use Types [...] on filedocumented in this encounter Care Teams Professor Of Communication And Writing Relationship Specialty Start Date End Date Ngozi Rodrigues MD PCP - General Internal Medicine 10/22/11 01/14/12 Augie Stephens MD PCP - General Internal Medicine 01/15/12 02/25/12 Rizwana Parson MD PCP - General Internal Medicine 02/26/12 07/23/23 Grace Terrell MD PCP - General Internal Medicine 07/24/23 documented as of this encounter
--- OUTSIDE RECORDS SUMMARY | 2024-06-25 18:05 | XMS_ITS | Encounter Summary ---
Author Organization [facility] Address [address] [place] [address] Care Team Providers Care Burning Supervisor Name Role Phone Rizwana Parson MD Primary Care Provider Grace Hebert MD Primary Care Provider Unavaila ble Encounter Details Date Type Department Care Team Description 11/23/2014 Controlled Substance Plan Medical Records [address] [place] [address] Abstract, Provider Social History Tobacco Use Types [...] on filedocumented in this encounter Care Teams Burning Supervisor Relationship Specialty Start Date End Date Rizwana Parson MD PCP - General Internal Medicine 02/26/12 07/23/23 Grace Terrell MD PCP - General Internal Medicine 07/24/23 documented as of this encounter
--- OUTSIDE RECORDS SUMMARY | 2024-06-25 18:05 | XMS_ITS | Encounter Summary ---
Author Organization [facility] Address [address] [place] [address] Care Team Providers Care Supervisor Stave Finishing Name Role Phone Rizwana Parson MD Primary Care Provider Unava Grace Orozco MD Primary Care Provider Unavaila ble Encounter Details Date Type Department Care Team Description 03/28/2012 [facility] Medical Records [address] [place] [address] Otilio Cody MD [address] [place] [address] [address] [place], [place] [id number] Social History Tobacco Use Types Packs/Day Years [...] on filedocumented in this encounter Care Teams Supervisor Stave Finishing Relationship Specialty Start Date End Date Rizwana Parson MD PCP - General Internal Medicine 02/26/12 07/23/23 Grace Terrell MD PCP - General Internal Medicine 07/24/23 documented as of this encounter
--- OUTSIDE RECORDS SUMMARY | 2024-06-25 18:05 | XMS_ITS | Encounter Summary ---
Author Organization [facility] Address [address] [place] [address] Care Team Providers Care Physically Impaired Teacher Name Role Phone Rizwana Parson MD Primary Care Provider Grace Hebert MD Primary Care Provider Unavaila ble Encounter Details Date Type Department Care Team Description 06/11/2019 [facility] Medical Records [address] [place] [address] Rodolfo Hardin, LUTHER Social History Tobacco Use [...] on filedocumented in this encounter Care Teams Physically Impaired Teacher Relationship Specialty Start Date End Date Rizwana Parson MD PCP - General Internal Medicine 02/26/12 07/23/23 Grace Terrell MD PCP - General Internal Medicine 07/24/23 documented as of this encounter
--- OUTSIDE RECORDS SUMMARY | 2024-06-25 18:05 | XMS_ITS | Encounter Summary ---
Author Organization [facility] Address [address] [place] [address] Care Team Providers Care Data Analyst Name Role Phone Rizwana Parson MD Primary Care Provider Grace Hebert MD Primary Care Provider Unavaila ble Encounter Details Date Type Department Care Team Description 03/17/2015 [facility] Medical Records [address] [place] [address] Social History Tobacco Use Types Packs/Day Years [...] on filedocumented in this encounter Care Teams Data Analyst Relationship Specialty Start Date End Date Rizwana Parson MD PCP - General Internal Medicine 02/26/12 07/23/23 Grace Terrell MD PCP - General Internal Medicine 07/24/23 documented as of this encounter
--- OUTSIDE RECORDS SUMMARY | 2024-06-25 18:05 | XMS_ITS | Clinical Summary ---
Author Organization [facility] Address [address] [place] [address] Care Team Providers Care Apartment Leasing Consultant Name Role Phone Grace Terrell MD Primary [...] mouth at bedtime as needed for Insomnia. 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 48 mL 0 [...] statins at higher doses IMO update Old ND (myocardial infarction) 2 Overview: S/p 3 stents 2007 Insomnia 02/19/2012 Cholecystitis 02/19/2012 Periodic limb movement disorder 02/19/20 12 MARNIE (obstructive sleep apnea) with CPAP 02/19/2012 Overview: CPAP 13 cm H2O Study 01/10/12 AHI 5.8 in REM Sleep apnea 01/13/2012 Chronic LBP 11/16/2011 Overview: IMO update Sigmoid diverticulitis 11/16/2011 CAD (coronary artery disease) 11/16/2011 Overview: Mychal Simms; ND; stents 2006; neg nuc stress test 04/11 [...] Hx Diabetes Negative Hx Hypertension Negative Hx ND Negative Hx Mental Disorder Negative Hx Sleep [...] VACCINE Completed 03/06/2016, 01/22/20 08 Care Teams Apartment Leasing Consultant Relationship Specialty Start Date End Date Grace Terrell MD PCP - General Internal Medicine 07/24/23
--- OUTSIDE RECORDS SUMMARY | 2024-06-25 18:05 | XMS_ITS | Encounter Summary ---
Author Organization [facility] Address [address] [place] [address] Care Team Providers Care Community Reinvestment Act Officer Name Role Phone Rizwana Parson MD Primary Care Provider Grace Hebert MD Primary Care Provider Unavaila ble Reason for Visit * Reason Onset Date Comments Faxed Order 06/12/2017 Encounter Details Date Type Department Care Team Description 06/12/2017 Refill Medicine/Pediatrics - [address] [phone] Rizwana Parson MD Faxed Order Social History Tobacco Use Types Packs/Day Years [...] encounter Miscellaneous Notes * Telephone Encounter - Kee Rivera M.A. - 06/13/2017 9:[address] Mae as he ref'd to PT * Telephone Encounter - Adia Dunham - 06/12/2017 11:24 AM EST [facility] needs a signature from Rizwana Parson for initial eval/discharge summary. PLease fax to [facility] once complete at [phone] Form to be placed in forms bin in call center documented in this encounter Plan of Treatment Not on file documented as of this encounter Visit Diagnoses Not on filedocumented in this encounter Care Teams Community Reinvestment Act Officer Relationship Specialty Start Date End Date Rizwana Parson MD PCP - General Internal Medicine 02/26/12 07/23/23 Grace Terrell MD PCP - General Internal Medicine 07/24/23 documented as of this encounter
== END 2024-06-25 15:22 | disposition home or self-care (01) ==
PROVIDERS: PCP Internal Medicine; Visit Provider Physician Assistant
DX: F33.41 Major depressive disorder, recurrent, in partial remission (principal); R73.03 Prediabetes; R05.9 Cough, unspecified; I10 Essential (primary) hypertension

== ENCOUNTER → 2024-06-25 14:47 | Outpatient (BNVA) | payer MEDICARE, SELFPAY | PROVIDERS: PCP Internal Medicine; Visit Provider Physician Assistant | DX: F33.41 Major depressive disorder, recurrent, in partial remission (principal); R73.03 Prediabetes; R05.9 Cough, unspecified; I10 Essential (primary) hypertension | CPT/HCPCS: 99212 ==

== ENCOUNTER 2024-08-18 08:14 | Outpatient (REF) | payer MEDICARE, SELFPAY ==
--- OUTSIDE RECORDS SUMMARY | 2024-08-18 08:31 | XMS_ITS | Clinical Summary ---
Author Organization [facility] Address [id number] [place] [id number] Care Team Providers Care Head Waiter/Waitress Name Role Phone Grace Diggs MD Primary Care Provider [phone] Surgical History Surgery Date Site/Laterality Comments BACK SURGERY as teen PROCEDURE: HISTORICAL BACK SURGERY; COMMENT: c spine bone implant ANGIOPLASTY 2006 PROCEDURE: HISTORICAL ANGIOPLASTY; COMMENT: lad,obtuse marginal HERNIA REPAIR 03/28/12 PROCEDURE: REPAIR UMBILICAL HERNIA; COMMENT: incarcerated umb hernia CHOLECYSTECTOMY 03/28/12 PROCEDURE: LAPAROSCOPY, CHOLECYSTECTOMY COLONOSCOPY around 2004 [place] PROCEDURE: HISTORICAL COLONOSCOPY; COMMENT: no polyps COLONOSCOPY 06/28/14 PROCEDURE: [place] COLONOSCOPY STOMA W/RMVL [place]LEY POLYP/OTH LES SNARE; COMMENT: small adenma and tics; would not repeat Medical History Medical History Date Comments Heart attack (CMS/HCC V24, C MS/HCC V28) 10/2004 DX:Heart attack (HCC); COMME NT: 3 stents Anxiety DX:Anxiety Hyperlipidemia DX:Hyperlipidemi a Chronic LBP DX:Chronic LBP Sigmoid diverticulitis DX:Sigmoi d diverticulitis CAD (coronary artery disease) DX :CAD (coronary artery disease); 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: 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, 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 Inguinal hernia, right DX:Inguin al hernia, right [...] (1 of 2) 03/18/2008 01/22/2008 RSV Immunization Adult Patients (1 - 1-dose 75+ series) 02/03/2016 COVID-19 Vaccine (3 - Pfizer risk series) 07/29/2020 07/01/2020, 06/10/2020 Cholesterol Screening (Lipid Panel) 03/31/2022 Depression Screening 03/31/2022 Falls Risk Assessment 03/31/2022 Medicare Annual Wellness Visit 03/31/2022 Social Influencers of Health Screening 03/31/2022 Hypertension/CHF/CAD Annual BMP Blood Test 04/12/2022 Influenza Vaccine (Season Ended) 2024 02/18/2022, 01/06/2021, 01/13/2020, Additional history exists DTaP,Tdap,and Td [...] age to complete this topic Meningococcal B Vaccine Aged Out No l onger eligible based on patient's age to complete this topic RSV Immunization Patients Under 20 months Aged Out No longer eligible based on patient's age to complete this topic Varicella Vaccines Aged Out No longer eligible based on patient's age to complete this topic Care Teams Head Waiter/Waitress Relationship Specialty Start Date End Date Grace Diggs MD PCP - General 07/24/23
[2024-08-18 11:27] LABS: MANUAL DIFF FLAG NO
[2024-08-18 11:34] LABS: Basophils Percent Auto 0.5 % (0-2); Eosinophils Absolute Auto 0.4 X10*3/uL (0.0-0.4); Eosinophils Percent Auto 6.5 % (0-4); Hematocrit 44.8 % (42.0-52.0); Hemoglobin 15.1 g/dl (14.0-18.0); Imm Gran Abs Auto 0.03 X10*3/uL (0.00-0.03); Imm Gran Pct Auto 0.5 % (0.0-0.4); Lymphocytes Absolute Auto 1.2 X10*3/uL (1.2-4.9); Lymphocytes Percent Auto 22.3 % (20-40); Mean Corpuscular HGB Conc 33.7 g/dl (31.0-36.0); Mean Corpuscular Hemoglobin 31.4 pg (27.0-33.0); Mean Corpuscular Volume 93.1 fL (80.0-98.0); Mean Platelet Volume 10.8 fL (9.4-12.4); Monocytes Absolute Auto 0.5 X10*3/uL (0.1-1.2); Monocytes Percent Auto 9.5 % (2-11); Neutrophils Absolute Auto 3.4 x10*3/uL (2.0-8.3); Neutrophils Percent Auto 60.7 % (45-73); Platelet Count 160 X10*3/uL (160-400); Red Blood Count 4.81 X10*6/uL (4.60-5.80); White Blood Count 5.6 X10*3/uL (4.8-10.8)
[2024-08-18 11:36] LABS: Appearance Urine Clear; Color Urine Dark Yellow; Glucose Urine UA Negative (Negative); Leukocyte Esterase Urine Negative (Negative); Nitrite Urine Negative (Negative); PH 5.5 (5.0-9.0); Specific Gravity - Urine 1.025 (1.005-1.025); Urine Blood Negative (Negative); Urine Ketones Negative (Negative); Urine Protein Negative (Neg-Trace)
[2024-08-18 12:13] LABS: Prostate Specific Antigen 1.61 ng/mL (<0.05-4.0)
== END 2024-08-18 08:15 | disposition home or self-care (01) ==
LOC: HO.WFDLDS 08:14
PROVIDERS: Referring Provider Nurse Practitioner Family; Visit Provider Physician Assistant
DX: R79.89 Other specified abnormal findings of blood chemistry (principal); R73.03 Prediabetes; F32.4 Major depressive disorder, single episode, in partial remission; E78.5 Hyperlipidemia, unspecified; G47.00 Insomnia, unspecified; N40.0 Benign prostatic hyperplasia without lower urinary tract symptoms; Z12.5 Encounter for screening for malignant neoplasm of prostate
CPT/HCPCS: 36415; 81003; 84153; 85025

== ENCOUNTER 2024-09-01 15:49 | Outpatient (AMB) | payer OTHER, SELFPAY ==
--- NOTE | 2024-09-01 15:58 | AM.OFFVISMDC ---
Intake Vital Signs 09/01/24 16:08 Height 5 ft 5.75 in Weight 216 lb BMI 35.1 BP 128/68 Blood Pressure Location Rt brachial Position Sitting Respiration 16 Pulse 62 Pulse Source Pulse Oximeter Pulse Oximetry (%) 92 Oxygen Delivery Method Room Air Intake Visit Reasons: awv Intake Note: Medical wellness visit Behavioral Health Care Coordinator Required: No Allergies simvastatin [Zocor] Allergy (Unknown, Verified 09/01/24 16:01) Hives HPI HPI Comments History of Present Illness Details The patient is an 84-year-old male with a past medical history of anxiety, depression, insomnia, hypertension, hyperlipidemia, CAD s/p WA, CVA, prediabetes, MARNIE on CPAP presenting for MWV Endo: has a hx of prediabetes. No polyuria or polydipsia. CV: On losartan 50g daily, Crestor 10 mg. Has a history of an WA s/p PCI. Follows with cardiology. Denies chest pain, exertional dyspnea Psych: On citalopram 20 mg and zolpidem 10 mg. Trazodone previously ineffective. Cares for his with increasing memory problems Follows with urology Colonoscopy: UTD ROS CONSTITUTIONAL: Denies weight loss, fever and chills. HEENT: Denies changes in vision and hearing. RESPIRATORY: Denies SOB and cough. CV: Denies palpitations and CP GI: Denies abdominal pain, nausea, vomiting and diarrhea. : Denies dysuria and urinary frequency. MSK: Denies new myalgia and joint pain. SKIN: Denies rash and pruritus. NEUROLOGICAL: Denies headache PSYCHIATRIC: Denies recent changes in mood. PHYSICAL EXAM: GENERAL: Alert and oriented x 3. NAD EYES: EOMI. Anicteric. HENT: Moist mucous membranes. No scleral icterus. No cervical lymphadenopathy. LUNGS: Clear to auscultation bilaterally. CARDIOVASCULAR: Regular rate and rhythm. No murmur. No JVD. ABDOMEN: Soft, non-tender +bs EXTREMITIES: No edema. Non-tender. SKIN: No rashes or lesions. Warm. NEUROLOGIC: No focal neurological deficits. CN II-XII grossly intact PSYCHIATRIC: Cooperative. Appropriate mood and affect [facility] Medical History Neck injury Vertigo Reactive airway disease Prediabetes Polyneuropathy Periodic limb movement disorder Osteoarthritis of left knee Osteoarthritis of hip MARNIE on CPAP Myocardial infarction Major depressive disorder in partial remission Insomnia Hypoxia Hyperlipidemia Hearing aid worn Dyspnea and respiratory abnormalities Diverticulitis of sigmoid colon Coronary atherosclerosis Coronary arteriosclerosis Chronic rhinitis Chronic low back pain Benign essential HTN Arthritis Adjustment disorder with mixed anxiety and depressed mood Surgical History H/O heart artery stent H/O colonoscopy H/O hernia repair Hx laparoscopic cholecystectomy Family History Mother Alzheimer dementia Social History (Updated 06/11/24 @ 12:56 by Candy Marie CMA) Housing: House Alcohol intake: current Patient Tobacco Use Status: Never used Tobacco e-Cigarette/Vaping Use: Never Used Second Hand Smoke Exposure: No service: No Current occupational status: retired Cognitive needs: No Hearing needs: No Vision needs: No Questionnaire Medicare Wellness Checkup What is your age?: 80 or older What gender do you identify with?: male During the past 4 weeks, how much have you been bothered by emotional problems such as feeling anxious, depressed, irritable, sad or downhearted, and blue?: not at all During the past 4 weeks, has your physical & emotional health limited your social activities with family, friends, neighbors, or groups?: not at all During the past 4 weeks, how much bodily pain have you generally had?: no pain During the past 4 weeks, was someone available to help you if you needed & wanted help?: no, not at all During the past 4 weeks, what was the hardest physical activity you could do for at least 2 minutes?: moderate Can you get to places out of walking distance without help? (For eg., can you travel alone on buses, taxis or drive your car?): Yes Can you go shopping for groceries or clothes without someone's help?: Yes Can you prepare your own meals?: Yes Can you do your housework without help?: Yes Because of any health problems, do you need the help of another person with your personal care needs such as eating, bathing, dressing or getting around the house?: No Can you handle your own money without help?: Yes During the past 4 weeks, how would you rate your health in general?: very good During the past 4 weeks how have things been going for you?: pretty well Are you having difficulties driving your car?: no Do you always fasten your seat belt when you are in a car?: yes, usually During past 4 weeks, have you been bothered by the following: never: Falling or dizzy when standing up, Sexual problems?, Trouble eating well?, Teeth or denture problems? and Problems using the telephone? and seldom: Tiredness or fatigue? Have you fallen 2 or more times in the past year?: Yes Are you afraid of falling?: No Are you a smoker?: no During the past 4 weeks, how many drinks of wine, beer, or other alcoholic beverages did you have?: no alcohol at all Do you exercise for about 20 minutes 3 or more times a week?: yes, some of the time Have you been given information to help with the following?: yes: Hazards in your house that might hurt you? and yes: Keeping track of your medications? How often do you have trouble taking medicines the way you have been told to take them?: I always take medicine as prescribed How confident are you that you can control & manage most of your health problems?: very confident What is your race?: White Mini Mental State Exam (MMSE) Orientation What is the (year) (season) (date) (day) (month)?: year (2024), season (spring), date (09/01), day and month Where are we (state) (county) (town or city) (hospital) (floor)?: state ([place]), counts include 234 beds at the [facility] ([place]), town or [facility], hospital/clinic and floor (first) Registration Name of 3 unrelated objects clearly and slowly, then ask patient to repeat all 3 of them. (1st repeat determines score. Make sure they can repeat all three): object 1 (ball), object 2 (flag) and object 3 (tree) Attention & Calculation (CHOOSE ONE) Spell WORLD backwards (DLROW): 5 letters Recall Ask patient to repeat the 3 items from question #3.: object 1 (flag), object 2 (ball) and object 3 (tree) Language Show patient a wristwatch & ask what it is. Repeat for pencil.: watch and pencil Ask the patient to repeat the phrase 'No ifs, ands, or buts' after you.: incorrect Print the sentence 'CLOSE YOUR EYES' on a piece. If patient actually closes eyes then score.: followed written direction Give patient a blank piece of paper & ask to write a sentence. Score if it contains a noun & verb.: sentence contains subject and verb Ask patient to copy figure of intersecting pentagons exactly. Score if all 10 angles & 2 intersects are included.: all 10 angles present & 2 are intersected Score Score: 26 Physical Exam Vital Signs: Last Vital Signs Pulse 62 09/01/24 16:08 Resp 16 09/01/24 16:08 BP 128/68 09/01/24 16:08 Pulse Ox 92 09/01/24 16:08 Oxygen Delivery Method Room Air 09/01/24 16:08 BMI result Body Mass Index 35.1 Assessment & Plan Assessment & Plan (1) Encounter for subsequent annual wellness visit (AWV) in Medicare patient: Code(s): Z00.00 - Encounter for general adult medical examination without abnormal findings (2) Major depressive disorder in partial remission: Code(s): F32.4 - Major depressive disorder, single episode, in partial remission Qualifiers: Major depression recurrence: recurrent Qualified Code(s): F33.41 - Major depressive disorder, recurrent, in partial remission (3) MARNIE (obstructive sleep apnea): Code(s): G47.33 - Obstructive sleep apnea (adult) (pediatric) (4) Prediabetes: Code(s): R73.03 - Prediabetes Plan 84 year old MWV Interval history reviewed HRA reviewed. Stable depression, anxiety & insomnia on current medications Allergic rhinitis-continue xyzal CV: Blood pressure is well controlled on current medications Orders: Orders Hemoglobin A1c 09/01/24 E78.5 - Hyperlipidemia, unspecified, F33.41 - Major depressive disorder, recurrent, in partial remission, G47.00 - Insomnia, unspecified, G47.33 - Obstructive sleep apnea (adult) (pediatric), I10 - Essential (primary) hypertension Complete Blood Count Auto Diff 09/01/24 E78.5 - Hyperlipidemia, unspecified, F33.41 - Major depressive disorder, recurrent, in partial remission, G47.00 - Insomnia, unspecified, G47.33 - Obstructive sleep apnea (adult) (pediatric), I10 - Essential (primary) hypertension Comprehensive Met. Panel 05/06/25 E78.5 - Hyperlipidemia, unspecified, F33.41 - Major depressive disorder, recurrent, in partial remission, G47.00 - Insomnia, unspecified, G47.33 - Obstructive sleep apnea (adult) (pediatric), I10 - Essential (primary) hypertension Lipid Panel 09/01/24 E78.5 - Hyperlipidemia, unspecified, F33.41 - Major depressive disorder, recurrent, in partial remission, G47.00 - Insomnia, unspecified, G47.33 - Obstructive sleep apnea (adult) (pediatric), I10 - Essential (primary) hypertension TSH reflex Free T4 09/01/24 E78.5 - Hyperlipidemia, unspecified, F33.41 - Major depressive disorder, recurrent, in partial remission, G47.00 - Insomnia, unspecified, G47.33 - Obstructive sleep apnea (adult) (pediatric), I10 - Essential (primary) hypertension Medications: Refilled zolpidem 10 mg PO BEDTIME 90 tabs 3RF G47.00 - Insomnia, unspecified levocetirizine (Xyzal) 5 mg PO QPM 90 tabs 3RF Coding Level of Care Code Medicare Subsequent (G0439) Diagnoses Encounter for subsequent annual wellness visit (AWV) in Medicare patient Z00.00 Recurrent major depressive disorder, in partial remission F33.41 Major depression recurrence: recurrent MARNIE (obstructive sleep apnea) G47.33 Prediabetes R73.03 Advance Care Planning Advance Care Planning discussion: Declined forms
[2024-09-01 16:08] VITALS: BP 128/68; PULSE 62; RESP 16; O2SAT 92; BMI 35.1
--- OUTSIDE RECORDS SUMMARY | 2024-09-01 16:50 | XMS_ITS | Clinical Summary ---
Author Organization [facility] Address [address] [place] [id number] Care Team Providers Care Feeder Catcher Name Role Phone Grace Diggs MD Primary Care Provider [phone] Surgical History Surgery Date Site/Laterality Comments BACK SURGERY as teen PROCEDURE: HISTORICAL BACK SURGERY; COMMENT: c spine bone implant ANGIOPLASTY 2006 PROCEDURE: HISTORICAL ANGIOPLASTY; COMMENT: lad,obtuse marginal HERNIA REPAIR 03/28/12 PROCEDURE: REPAIR UMBILICAL HERNIA; COMMENT: incarcerated umb hernia CHOLECYSTECTOMY 03/28/12 PROCEDURE: LAPAROSCOPY, CHOLECYSTECTOMY COLONOSCOPY around 2004 [place] PROCEDURE: HISTORICAL COLONOSCOPY; COMMENT: no polyps COLONOSCOPY 06/28/14 PROCEDURE: [place] COLONOSCOPY STOMA W/RMVL [place] POLYP/OTH LES SNARE; COMMENT: small adenma and tics; would not repeat Medical History Medical History Date Comments Heart attack (CMS/HCC V24, C MS/HCC V28) 10/2004 DX:Heart attack (HCC); COMME NT: 3 stents Anxiety DX:Anxiety Hyperlipidemia DX:Hyperlipidemi a Chronic LBP DX:Chronic LBP Sigmoid diverticulitis DX:Sigmoi d diverticulitis CAD (coronary artery disease) DX :CAD (coronary artery disease); 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
== END 2024-09-01 16:47 | disposition home or self-care (01) ==
LOC: HO.HMCFM 15:50
PROVIDERS: PCP Internal Medicine; Visit Provider Internal Medicine
DX: Z00.00 Encounter for general adult medical examination without abnormal findings (principal); F33.41 Major depressive disorder, recurrent, in partial remission; G47.33 Obstructive sleep apnea (adult) (pediatric); R73.03 Prediabetes

== ENCOUNTER 2024-11-16 10:13 | Outpatient (AMB) | payer OTHER, SELFPAY ==
--- NOTE | 2024-11-16 10:18 | MHC.PC.OV ---
Vital Signs 11/16/24 10:20 Height 5 ft 5.75 in Weight 213 lb 2 oz BMI 34.7 BP 132/82 Blood Pressure Location Rt brachial Position Sitting Respiration 14 Pulse 75 Pulse Source Pulse Oximeter Temp 97.9 F Temp Source Oral Pulse Oximetry (%) 93 Oxygen Delivery Method Room Air Intake Visit Reasons: deratology referral (skin tags) Intake Note: Sciatic pain on both side, mostly the right. Dermatology referral for skin tags on head. Allergies simvastatin (Zocor) Allergy (Unknown, Verified 11/16/24 10:19) Hives Tobacco use date assessed: 11/16/24 Dental Screening Dental Screen Date: 01/01/24 HPI HPI Comments History of Present Illness Details The patient is an 84-year-old male with a past medical history of anxiety, depression, insomnia, hypertension, hyperlipidemia, CAD s/p [place], CVA, prediabetes, MARNIE on CPAP presenting for acute visit Patient reports flare in right sciatic symptoms for the past 3 weeks. He has mid and right lower back pain with radiation into the right buttock and down the posterior right leg. He is taking tylenol without effective relief. No b/b incontinence, fevers. No particular injury. Patient also requests dermatology referral for multiple AKs and skin tags, most bothersome to him on the scalp Endo: has a hx of prediabetes. No polyuria or polydipsia. CV: On losartan 50g daily, Crestor 10 mg. Has a history of an [place] s/p PCI. Follows with cardiology. Denies chest pain, exertional dyspnea Psych: On citalopram 20 mg and zolpidem 10 mg. Trazodone previously ineffective. Cares for his with increasing memory problems Follows with urology Colonoscopy: UTD ROS see HPI PHYSICAL EXAM: GENERAL: Alert and oriented x 3. NAD EYES: EOMI. Anicteric. HENT: Moist mucous membranes. No scleral icterus. No cervical lymphadenopathy. LUNGS: Clear to auscultation bilaterally. CARDIOVASCULAR: Regular rate and rhythm. No murmur. No JVD. ABDOMEN: Soft, non-tender +bs EXTREMITIES: No edema. Non-tender. SKIN: No rashes or lesions. Warm. NEUROLOGIC: No focal neurological deficits. CN II-XII grossly intact PSYCHIATRIC: Cooperative. Appropriate mood and affect [facility] Medical History Neck injury Vertigo Reactive airway disease Prediabetes Polyneuropathy Periodic limb movement disorder Osteoarthritis of left knee Osteoarthritis of hip MARNIE on CPAP Myocardial infarction Major depressive disorder in partial remission Insomnia Hypoxia Hyperlipidemia Hearing aid worn Dyspnea and respiratory abnormalities Diverticulitis of sigmoid colon Coronary atherosclerosis Coronary arteriosclerosis Chronic rhinitis Chronic low back pain Benign essential HTN Arthritis Adjustment disorder with mixed anxiety and depressed mood Surgical History H/O heart artery stent H/O colonoscopy H/O hernia repair Hx laparoscopic cholecystectomy Family History Mother Alzheimer dementia Social History Housing: House Alcohol intake: current Patient Tobacco Use Status: Never used Tobacco e-Cigarette/Vaping Use: Never Used Second Hand Smoke Exposure: No service: No Current occupational status: retired Cognitive needs: No Hearing needs: No Vision needs: No Questionnaire Thrive Questionnaire Date Thrive assessed: 06/25/24 I am a: Patient What is your living situation today?: I choose not to answer this question Within the past 12 months, did the food you bought not last and you didn't have the money to get more?: I choose not to answer this question Within the past 12 months, did you worry whether your food would run out before you got money to buy more?: I choose not to answer this question Do you have trouble paying for medicines?: I choose not to answer this question Do you have trouble getting transportation to medical appointments?: I choose not to answer this question Do you have trouble paying your heating and electricity bill?: I choose not to answer this question Do you have trouble taking care of your child, family member or friend?: I choose not to answer this question Do you have trouble with day-to-day activities such as bathing, preparing meals, shopping, managing finances, etc.?: I choose not to answer this question Are you currently unemployed and looking for a job?: I choose not to answer this question Are you interested in more education?: I choose not to answer this question Please select the resources that you would like help with: None Currently or been in a relationship where the following occur: I choose not to answer THRIVE Score: 0 KJ-7 AMB Questionnaire KJ-7 Date KJ - 7 assessed: 01/01/24 Source: Developed by Drs. Deni Jones, Marcela Syed, Stanley Stock and colleagues, with an educational ca from [employer]. Physical exam (Primary Care) Vital Signs: Last Vital Signs Temp 97.9 F 11/16/24 10:20 Pulse 75 11/16/24 10:20 Resp 14 11/16/24 10:20 BP 132/82 11/16/24 10:20 Pulse Ox 93 11/16/24 10:20 Oxygen Delivery Method Room Air 11/16/24 10:20 BMI result Body Mass Index 34.7 Tobacco/Smoking Status: Tobacco use Status Tobacco use date assessed 11/16/24 11/16/24 10:21 Patient Tobacco Use Status Never used Tobacco 11/16/24 10:21 e-Cigarette/Vaping Use Never Used 11/16/24 10:21 Thrive Assessment: Date of Thrive Assessment Date Thrive assessed 06/25/24 11/16/24 10:21 Currently or been in a relationship where the following occur: I choose not to answer Coding Level of Care Code Est Pt Level 4 (14452) Diagnoses Sciatica of right side M54.31 Laterality: right Keratosis L57.0 Assessment & Plan Assessment & Plan (1) Sciatica: Code(s): M54.30 - Sciatica, unspecified side Category: Medical Qualifiers: Laterality: right Qualified Code(s): M54.31 - Sciatica, right side (2) Keratosis: Code(s): L57.0 - Actinic keratosis Category: Medical Plan 84 year old male presenting for acute visit Acute sciatic flare-prednisone ordered. flexeril before bed prn. Gabapentin BID as tolerated. If no improvement will xray and refer for PT, physiatry Multiple AKs, skin tabs-dermatology referral placed Orders: Referrals Dermatology Referral L57.0 - Actinic keratosis Medications: New cyclobenzaprine 5 mg PO BEDTIME PRN 30 tabs 3RF muscle spasm prednisone 40 mg (2 x 20 mg) PO DAILY 10 tabs 0RF gabapentin 300 mg PO BID 60 caps 3RF
[2024-11-16 10:20] VITALS: BP 132/82; PULSE 75; RESP 14; TEMP 36.6; O2SAT 93; BMI 34.7
--- OUTSIDE RECORDS SUMMARY | 2024-11-16 11:05 | XMS_ITS | Clinical Summary ---
Author Organization [facility] Address [id number] [place] [id number] Care Team Providers Care Checker Name Role Phone Grace Diggs MD Primary Care Provider [phone] Surgical History Surgery Date Site/Laterality Comments BACK SURGERY as teen PROCEDURE: HISTORICAL BACK SURGERY; COMMENT: c spine bone implant ANGIOPLASTY 2006 PROCEDURE: HISTORICAL ANGIOPLASTY; COMMENT: lad,obtuse marginal HERNIA REPAIR 03/28/12 PROCEDURE: REPAIR UMBILICAL HERNIA; COMMENT: incarcerated umb hernia CHOLECYSTECTOMY 03/28/12 PROCEDURE: LAPAROSCOPY, CHOLECYSTECTOMY COLONOSCOPY around 2004 [place] PROCEDURE: HISTORICAL COLONOSCOPY; COMMENT: no polyps COLONOSCOPY 06/28/14 PROCEDURE: [place] COLONOSCOPY STOMA W/RMVL AINSLEY POLYP/OTH LES SNARE; COMMENT: small adenma and tics; would not repeat Medical History Medical History Date Comments Heart attack (CMS/HCC V24, C MS/HCC V28) 10/2004 DX:Heart attack (HCC); COMME NT: 3 stents Anxiety DX:Anxiety Hyperlipidemia DX:Hyperlipidemi a Chronic LBP DX:Chronic LBP Sigmoid diverticulitis DX:Sigmoi d diverticulitis CAD (coronary artery disease) DX :CAD (coronary artery disease); COMMENT: 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, molder feeder Inguinal hernia, right DX:Inguin al hernia, right [...] 07/01/2020, 06/10/2020 Cholesterol Screening (Lipid Panel) 03/31/2022 Falls Risk Assessment 03/31/2022 Medicare Annual Wellness Visit 03/31/2022 Social Influencers of Health Screening 03/31/2022 Hypertension/CHF/CAD Annual BMP Blood Test 04/12/2022 Depression Screening 04/29/2024 Influenza Vaccine (#1) 2024 2, 01/06/2021, 01/13/2020, Additional history exists DTaP,Tdap,and [...] age to complete this topic Care Teams Checker Relationship Specialty Start Date End Date Grace Diggs MD PCP - General 07/24/23
== END 2024-11-16 12:03 | disposition home or self-care (01) ==
LOC: HO.HMCFM 10:14
PROVIDERS: PCP Internal Medicine; Visit Provider Internal Medicine
DX: M54.31 Sciatica, right side (principal); L57.0 Actinic keratosis

== ENCOUNTER 2025-03-08 11:24 | Outpatient (AMB) | payer OTHER, SELFPAY ==
--- NOTE | 2025-03-08 11:30 | MHC.PC.OV ---
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 Required: No Allergies simvastatin (Zocor) Allergy (Unknown, Verified 03/08/25 11:33) Hives Tobacco use date assessed: 03/08/25 Dental Screening Dental Screen Date: 03/08/25 Did you have a dental visit in the last 12 months?: No Did you have a dental problem in the last 6 months where you did not have access to dental care?: No Was dental information given to patient?: Patient declined (would go to wifes dentist is needed.) HPI HPI Comments History of Present Illness Details The patient is an 84-year-old male with a past medical history of anxiety, depression, insomnia, hypertension, hyperlipidemia, CAD s/p [place], CVA, prediabetes, MARNIE on CPAP presenting for follow up MSK: At last visit in October-Patient reports flare in right sciatic symptoms for the past 3 weeks. Reports symptoms have settled back to baseline after prednisone then. He has mid and right lower back pain with radiation into the right buttock and down the posterior right leg. Worse at night. He takes prn tylenol and has tramadol and flexeril if it flares. No b/b incontinence, fevers. No particular injury. Endo: has a hx of prediabetes. No polyuria or polydipsia. CV: On losartan 50g daily, Crestor 10 mg. Has a history of an [place] s/p PCI. Follows with cardiology. Denies chest pain, exertional dyspnea Psych: On citalopram 20 mg and zolpidem 10 mg. Trazodone previously ineffective. Cares for his with increasing memory problems which can be stressful MARNIE: on cpap. Went to [facility]. Says generally gets supply from [facility] but they often send him the wrong ones Follows with urology ROS see HPI PHYSICAL EXAM: GENERAL: Alert and oriented x 3. NAD EYES: EOMI. Anicteric. HENT: Moist mucous membranes. No scleral icterus. No cervical lymphadenopathy. LUNGS: Clear to auscultation bilaterally. CARDIOVASCULAR: Regular rate and rhythm. No JVD. ABDOMEN: Soft, non-tender +bs EXTREMITIES: No edema. Non-tender. SKIN: No rashes or lesions. Warm. NEUROLOGIC: No focal neurological deficits. CN II-XII grossly intact PSYCHIATRIC: Cooperative. Appropriate mood and affect [facility] Medical History Neck injury Vertigo Reactive airway disease Prediabetes Polyneuropathy Periodic limb movement disorder Osteoarthritis of left knee Osteoarthritis of hip MARNIE on CPAP Myocardial infarction Major depressive disorder in partial remission Insomnia Hypoxia Hyperlipidemia Hearing aid worn Dyspnea and respiratory abnormalities Diverticulitis of sigmoid colon Coronary atherosclerosis Coronary arteriosclerosis Chronic rhinitis Chronic low back pain Benign essential HTN Arthritis Adjustment disorder with mixed anxiety and depressed mood Surgical History H/O heart artery stent H/O colonoscopy H/O hernia repair Hx laparoscopic cholecystectomy Family History Mother Alzheimer dementia Social History Housing: House Alcohol intake: current Patient Tobacco Use Status: Never used Tobacco e-Cigarette/Vaping Use: Never Used Second Hand Smoke Exposure: No service: No Current occupational status: retired Cognitive needs: No Hearing needs: No Vision needs: No Questionnaire Thrive Questionnaire Date Thrive assessed: 06/25/24 I am a: Patient What is your living situation today?: I choose not to answer this question Within the past 12 months, did the food you bought not last and you didn't have the money to get more?: I choose not to answer this question Within the past 12 months, did you worry whether your food would run out before you got money to buy more?: I choose not to answer this question Do you have trouble paying for medicines?: I choose not to answer this question Do you have trouble getting transportation to medical appointments?: I choose not to answer this question Do you have trouble paying your heating and electricity bill?: I choose not to answer this question Do you have trouble taking care of your child, family member or friend?: I choose not to answer this question Do you have trouble with day-to-day activities such as bathing, preparing meals, shopping, managing finances, etc.?: I choose not to answer this question Are you currently unemployed and looking for a job?: I choose not to answer this question Are you interested in more education?: I choose not to answer this question Please select the resources that you would like help with: None Currently or been in a relationship where the following occur: I choose not to answer THRIVE Score: 0 KJ-7 AMB Questionnaire KJ-7 Date KJ - 7 assessed: 01/01/24 Source: Developed by Drs. Deni Jones, Marcela Syed, Stanley Stock and colleagues, with an educational ca from [employer]. Physical exam (Primary Care) Vital Signs: Last Vital Signs Temp 97.7 F 03/08/25 11:36 Pulse 59 03/08/25 11:36 Resp 16 03/08/25 11:36 BP 118/64 03/08/25 11:39 Pulse Ox 93 03/08/25 11:36 Oxygen Delivery Method Room Air 03/08/25 11:36 BMI result Body Mass Index 35.1 Tobacco/Smoking Status: Tobacco use Status Tobacco use date assessed 03/08/25 03/08/25 11:34 Patient Tobacco Use Status Never used Tobacco 03/08/25 11:30 e-Cigarette/Vaping Use Never Used 03/08/25 11:30 Thrive Assessment: Date of Thrive Assessment Date Thrive assessed 06/25/24 03/08/25 11:30 Currently or been in a relationship where the following occur: I choose not to answer Coding Level of Care Code Est Pt Level 4 (14951) Complex EM visit Add On G2211 Diagnoses Recurrent major depressive disorder, in partial remission F33.41 Major depression recurrence: recurrent Benign essential HTN I10 Prediabetes R73.03 Sciatica of right side M54.31 Laterality: right Assessment & Plan Assessment & Plan (1) Major depressive disorder in partial remission: Code(s): F32.4 - Major depressive disorder, single episode, in partial remission Category: Medical Qualifiers: Major depression recurrence: recurrent Qualified Code(s): F33.41 - Major depressive disorder, recurrent, in partial remission (2) Benign essential HTN: Code(s): I10 - Essential (primary) hypertension Category: Medical (3) Prediabetes: Code(s): R73.03 - Prediabetes Category: Medical (4) Sciatica: Code(s): M54.30 - Sciatica, unspecified side Category: Medical Qualifiers: Laterality: right Qualified Code(s): M54.31 - Sciatica, right side Plan 85 year old for follow up Interval history reviewed Depression is stable on celexa. Insomnia is stable CV: Blood pressure adequately controlled on current medications Sciatica continues to be problematic at night. Increase gabapentin at bedtime to 600mg Medications: Changed From gabapentin 300 mg PO BID 60 caps 3RF To gabapentin Take one tab oral in the morning and two tab oral before bed 270 caps 3RF Discontinued prednisone Discontinued Reason: Doctor's Order 40 mg (2 x 20 mg) PO DAILY 10 tabs 0RF
[2025-03-08 11:36] VITALS: BP 144/74; PULSE 59; RESP 16; TEMP 36.5; O2SAT 93; BMI 35.1
[2025-03-08 11:39] VITALS: BP 118/64
--- OUTSIDE RECORDS SUMMARY | 2025-03-08 13:46 | XMS_ITS ---
Author Name [facility] Organization Unknown Care Team Organization Name Specialty Phone Email Start Date End Da te [facility] Termed, PROVIDER Primary Care 03/06/202211/27
--- OUTSIDE RECORDS SUMMARY | 2025-03-08 13:46 | XMS_ITS | Clinical Summary ---
Author Organization [facility] Address [id number] [place] [id number] Care Team Providers Care Hide Inspector Name Role Phone Grace Diggs MD Primary Care Provider [phone] Surgical History Surgery Date Site/Laterality Comments BACK SURGERY as teen PROCEDURE: HISTORICAL BACK SURGERY; COMMENT: c spine bone implant ANGIOPLASTY 2006 PROCEDURE: HISTORICAL ANGIOPLASTY; COMMENT: lad,obtuse marginal HERNIA REPAIR 03/28/12 PROCEDURE: REPAIR UMBILICAL HERNIA; COMMENT: incarcerated umb hernia CHOLECYSTECTOMY 03/28/12 PROCEDURE: LAPAROSCOPY, CHOLECYSTECTOMY COLONOSCOPY around 2004 [place] PROCEDURE: HISTORICAL COLONOSCOPY; COMMENT: no polyps COLONOSCOPY 06/28/14 PROCEDURE: [place] COLONOSCOPY STOMA W/RMVL [place] POLYP/OTH LES SNARE; COMMENT: small adenma and tics; would not repeat Medical History Medical History Date Comments Heart attack (CMS/HCC V24, C MS/HCC V28) 10/2004 DX:Heart attack (HCC); COMME NT: 3 stents Anxiety DX:Anxiety Hyperlipidemia DX:Hyperlipidemi a Chronic LBP DX:Chronic LBP Sigmoid diverticulitis DX:Sigmoi d diverticulitis CAD (coronary artery disease) DX :CAD (coronary artery disease); COMMENT: 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, urban redevelopment specialist Inguinal hernia, right DX:Inguin al hernia, [...] age to complete this topic Care Teams Hide Inspector Relationship Specialty Start Date End Date Grace Diggs MD PCP - General 07/24/23
== END 2025-03-08 11:54 | disposition home or self-care (01) ==
LOC: HO.HMCFM 11:25
PROVIDERS: PCP Internal Medicine; Visit Provider Internal Medicine
DX: F33.41 Major depressive disorder, recurrent, in partial remission (principal); I10 Essential (primary) hypertension; R73.03 Prediabetes; M54.31 Sciatica, right side

== ENCOUNTER 2025-03-08 11:24 | Outpatient (REF) | payer OTHER, SELFPAY ==
[2025-03-08 14:17] LABS: MANUAL DIFF FLAG NO
[2025-03-08 14:28] LABS: Hematocrit 45.4 % (42.0-52.0); Hemoglobin 15.2 g/dl (14.0-18.0); Imm Gran Abs Auto 0.02 X10*3/uL (0.00-0.03); Imm Gran Pct Auto 0.4 % (0.0-0.4); Lymphocytes Absolute Auto 1.3 X10*3/uL (1.2-4.9); Mean Corpuscular HGB Conc 33.5 g/dl (31.0-36.0); Mean Corpuscular Hemoglobin 31.3 pg (27.0-33.0); Mean Corpuscular Volume 93.4 fL (80.0-98.0); NRBC Abs Auto 0.000 X10*3/uL (0.0-0.012); NRBC Pct Auto 0.0 /100WBC (0.0-0.2); Platelet Count 172 X10*3/uL (160-400); Red Blood Count 4.86 X10*6/uL (4.60-5.80); White Blood Count 5.7 X10*3/uL (4.8-10.8)
[2025-03-08 14:40] LABS: Appearance Urine Clear; Glucose Urine UA 100 mg/dL (Negative); PH 5.0 (5.0-9.0); Specific Gravity - Urine 1.020 (1.005-1.025)
[2025-03-08 16:39] LABS: Alanine Aminotransferase 39 U/L (0-40); Albumin Level 4.2 g/dL (3.5-5.0); Alkaline Phosphatase 74 U/L (39-117); Anion Gap 14 (12-20); Aspartate Amino Transferase 32 U/L (5-37); Blood Urea Nitrogen 18 mg/dL (9-16); Calcium 9.4 mg/dL (8.4-10.2); Carbon Dioxide 23 mmol/L (22-29); Chloride 109 mmol/L (96-108); Cholesterol 142 mg/dL (<200); Estimated Glomerular Filt Rate > 60; HDL Cholesterol 34 mg/dL (>40); Potassium 4.5 mmol/L (3.3-5.1); Sodium 141 mmol/L (135-145); Total Protein 7.1 g/dL (6.5-8.0); Triglycerides 139 mg/dL (<150)
== END 2025-03-08 11:25 | disposition home or self-care (01) ==
LOC: HO.WFDLDS 11:24
PROVIDERS: Physician Assistant; PCP Internal Medicine; Visit Provider Internal Medicine
DX: F33.41 Major depressive disorder, recurrent, in partial remission (principal); R31.9 Hematuria, unspecified; G47.00 Insomnia, unspecified; I10 Essential (primary) hypertension; E78.5 Hyperlipidemia, unspecified; G47.33 Obstructive sleep apnea (adult) (pediatric); R73.03 Prediabetes; M54.31 Sciatica, right side; Z99.89 Dependence on other enabling machines and devices
CPT/HCPCS: 36415; 80053; 80061; 81003; 83036; 84443; 85025